=== PATIENT | female | born 1935 | race Caucasian/White ===

== ENCOUNTER 2019-10-10 08:23 | Outpatient (CLI) | payer MEDICARE, SELFPAY ==
--- NOTE | 2019-10-10 | ECG_ITS ---
Measurements Intervals [place] Rate: 76 P: 13 MO: 156 QRS: 2 QRSD: 107 T: 43 QT: 354 QTc: 400 Interpretive Statements SINUS RHYTHM BASELINE ARTIFACT- II, III, AVF NORMAL ECG Electronically Signed On 10-10-2019 10:14:05 CDT by Devaughn Sanabria D.O.
[2019-10-10 08:56] LABS: Blood Urea Nitrogen 21 mg/dL (7-17); Calcium 9.3 mg/dL (8.4-10.2); Carbon Dioxide 32 mmol/L (22-30); Chloride 105 mmol/L (98-107); Estimated Glomerular Filt Rate > 60; Glucose 107 mg/dL (65-105); Potassium 4.4 mmol/L (3.4-5.0); Sodium 139 mmol/L (137-145)
== END 2019-10-10 08:24 | disposition home or self-care (01) ==
PROVIDERS: PCP Family Medicine; Visit Provider Orthopaedic Surgery
DX: Z01.818 Encounter for other preprocedural examination (principal); I10 Essential (primary) hypertension
CPT/HCPCS: 36415; 80048; 93005

== ENCOUNTER 2020-05-04 08:27 | Outpatient (CLI) | payer MEDICARE, SELFPAY ==
[2020-05-04 09:11] LABS: Anion Gap 7 mmol/L (8-16); Blood Urea Nitrogen 19 mg/dL (7-17); Calcium 9.4 mg/dL (8.4-10.2); Carbon Dioxide 30 mmol/L (22-30); Chloride 104 mmol/L (98-107); Cholesterol 214 mg/dL (0-200); Estimated Glomerular Filt Rate 60; Glucose 121 mg/dL (65-105); HDL Direct 45 mg/dL; Potassium 4.3 mmol/L (3.4-5.0); Sodium 141 mmol/L (137-145); Triglycerides 156 mg/dL (<150)
[2020-05-04 09:22] LABS: LDL Cholesterol Direct 130 mg/dL
== END 2020-05-04 08:28 | disposition home or self-care (01) ==
PROVIDERS: PCP Internal Medicine; Visit Provider Internal Medicine
DX: I10 Essential (primary) hypertension (principal); E03.9 Hypothyroidism, unspecified; E78.5 Hyperlipidemia, unspecified
CPT/HCPCS: 36415; 80048; 80061; 84443

== ENCOUNTER 2020-10-15 07:13 | Outpatient (CLI) | payer MEDICARE, SELFPAY ==
[2020-10-15 07:51] LABS: Anion Gap 4 mmol/L (8-16); Blood Urea Nitrogen 22 mg/dL (7-17); Calcium 9.2 mg/dL (8.4-10.2); Carbon Dioxide 31 mmol/L (22-30); Chloride 107 mmol/L (98-107); Cholesterol 194 mg/dL (0-200); Estimated Glomerular Filt Rate 53; Glucose 110 mg/dL (65-105); HDL Direct 47 mg/dL; Potassium 4.4 mmol/L (3.4-5.0); Sodium 142 mmol/L (137-145); Triglycerides 142 mg/dL (<150)
[2020-10-15 08:01] LABS: LDL Cholesterol Direct 104 mg/dL
== END 2020-10-15 07:14 | disposition home or self-care (01) ==
PROVIDERS: PCP Internal Medicine; Visit Provider Internal Medicine
DX: E03.9 Hypothyroidism, unspecified (principal); E78.5 Hyperlipidemia, unspecified; I10 Essential (primary) hypertension
CPT/HCPCS: 36415; 80048; 80061; 84443

== ENCOUNTER → 2020-12-16 08:49 | Outpatient (CLI) | payer MEDICARE, SELFPAY ==
--- NOTE | ~2020-12-16 | XR_ITS ---
EXAMINATION: XR chest 2V DATE: 12/16/2020 09:12 INDICATION: Dyspnea TECHNIQUE: PA and lateral views of the chest were obtained. COMPARISON: Chest radiograph dated 09/03/2014 FINDINGS: The lungs remain clear with no focal airspace opacities, pulmonary edema, pleural effusion or pneumot horax. The cardiomediastinal silhouette is normal. Mild thoracic spondylosis. IMPRESSION: 1. No acute cardiopulmonary disease. Reviewed, dictated and finalized at location A.
== END ==
PROVIDERS: PCP Internal Medicine; Visit Provider Internal Medicine
DX: R06.00 Dyspnea, unspecified (principal)
CPT/HCPCS: 71046

== ENCOUNTER → 2021-02-25 01:11 | Outpatient (CLI) | payer MEDICARE, SELFPAY ==
[2021-02-26 00:13] LABS: SARS-CoV-2 RNA PCR Negative
== END ==
PROVIDERS: PCP Internal Medicine; Visit Provider Internal Medicine
DX: Z20.822 Contact with and (suspected) exposure to COVID-19 (principal); R09.89 Other specified symptoms and signs involving the circulatory and respiratory systems
CPT/HCPCS: C9803; U0003; U0005

== ENCOUNTER 2021-05-03 07:33 | Outpatient (CLI) | payer MEDICARE, SELFPAY ==
[2021-05-03 10:24] LABS: Alanine Aminotransferase 14 U/L (4-35); Albumin Level 4.5 g/dL (3.5-5.1); Alkaline Phosphatase 92 U/L (38-126); Anion Gap 9 mmol/L (8-16); Aspartate Amino Transferase 23 U/L (14-36); Bilirubin,Total 0.4 mg/dL (0.2-1.3); Blood Urea Nitrogen 25 mg/dL (7-17); Calcium 9.4 mg/dL (8.4-10.2); Carbon Dioxide 26 mmol/L (22-30); Chloride 106 mmol/L (98-107); Estimated Glomerular Filt Rate 47; Glucose 106 mg/dL (65-110); Potassium 4.4 mmol/L (3.4-5.0); Sodium 141 mmol/L (137-145)
== END 2021-05-03 07:34 | disposition home or self-care (01) ==
PROVIDERS: PCP Internal Medicine; Visit Provider Nurse Practitioner
DX: E03.9 Hypothyroidism, unspecified (principal); I10 Essential (primary) hypertension
CPT/HCPCS: 36415; 80053; 84443

== ENCOUNTER 2021-07-01 07:09 | Outpatient (CLI) | payer MEDICARE, SELFPAY ==
[2021-07-01 08:41] LABS: Hematocrit 38.9 % (37.0-47.0); Hemoglobin 12.6 g/dL (12.0-15.0); Mean Corpuscular HGB Conc 32.4 g/dl (32-36); Mean Corpuscular Hemoglobin 30.7 pg (26-34); Mean Corpuscular Volume 94.9 fl (80-100); Mean Platelet Volume 10.6 fl (7.4-10.4); Platelet Count Result 308 k/mm3 (150-375); Red Cell Distribution Width 12.4 % (11.5-14.5)
[2021-07-01 08:43] LABS: Anion Gap 8 mmol/L (8-16); Blood Urea Nitrogen 23 mg/dL (7-17); Calcium 9.2 mg/dL (8.4-10.2); Carbon Dioxide 26 mmol/L (22-30); Chloride 102 mmol/L (98-107); Estimated Glomerular Filt Rate 59; Glucose 105 mg/dL (65-110); Potassium 4.3 mmol/L (3.4-5.0); Sodium 136 mmol/L (137-145)
[2021-07-01 09:02] LABS: Free T4 Free Thyroxine 1.46 ng/mL (0.78-2.19)
== END 2021-07-01 07:10 | disposition home or self-care (01) ==
LOC: ANHLAB 07:11
PROVIDERS: PCP Family Medicine; Visit Provider Family Medicine
DX: E03.9 Hypothyroidism, unspecified (principal); I10 Essential (primary) hypertension
CPT/HCPCS: 36415; 80048; 84439; 84443; 85027

== ENCOUNTER 2021-07-27 06:50 | Outpatient (CLI) | payer MEDICARE, SELFPAY ==
[2021-07-27 07:43] LABS: Hematocrit 39.2 % (37.0-47.0); Hemoglobin 12.7 g/dL (12.0-15.0); Mean Corpuscular HGB Conc 32.4 g/dl (32-36); Mean Corpuscular Hemoglobin 31.2 pg (26-34); Mean Corpuscular Volume 96.3 fl (80-100); Mean Platelet Volume 10.3 fl (7.4-10.4); Platelet Count Result 257 k/mm3 (150-375); Red Blood Count 4.07 M/mm3 (4.2-5.4); Red Cell Distribution Width 12.4 % (11.5-14.5); White Blood Count 6.6 K/mm3 (4.5-10.0)
[2021-07-27 07:44] LABS: Anion Gap 8 mmol/L (8-16); Blood Urea Nitrogen 23 mg/dL (7-17); Calcium 9.5 mg/dL (8.4-10.2); Carbon Dioxide 26 mmol/L (22-30); Chloride 105 mmol/L (98-107); Estimated Glomerular Filt Rate 53; Glucose 113 mg/dL (65-110); Potassium 4.1 mmol/L (3.4-5.0); Sodium 139 mmol/L (137-145)
== END 2021-07-27 06:51 | disposition home or self-care (01) ==
PROVIDERS: PCP Family Medicine; Visit Provider Nurse Practitioner Family
DX: R79.9 Abnormal finding of blood chemistry, unspecified (principal); D64.9 Anemia, unspecified
CPT/HCPCS: 36415; 80048; 85027

== ENCOUNTER 2021-10-24 07:16 | Outpatient (CLI) | payer MEDICARE, SELFPAY ==
--- NOTE | ~2021-10-24 | XR_ITS ---
EXAMINATION: XR chest 2V DATE: 10/24/2021 07:34 INDICATION: Cough, unspecified. TECHNIQUE: Frontal and lateral views of the chest were obtained. COMPARISON: Chest 2 views 12/16/2020 FINDINGS: There is mild scarring at the lung apices. No pleural effusion or pneumothorax. The heart s ize is normal. IMPRESSION: 1. Stable mild scarring at the lung apices. Reviewed, dictated and finalized at location A.
== END 2021-10-24 07:17 | disposition home or self-care (01) ==
LOC: ANHIMG 07:21
PROVIDERS: PCP Family Medicine; Visit Provider Nurse Practitioner Family
DX: R05.9 Cough, unspecified (principal); R91.8 Other nonspecific abnormal finding of lung field
CPT/HCPCS: 71046

== ENCOUNTER 2022-01-03 07:16 | Outpatient (CLI) | payer MEDICARE, SELFPAY ==
[2022-01-03 08:31] LABS: Anion Gap 3 mmol/L (8-16); Blood Urea Nitrogen 22 mg/dL (7-17); Calcium 9.1 mg/dL (8.4-10.2); Carbon Dioxide 30 mmol/L (22-30); Chloride 106 mmol/L (98-107); Estimated Glomerular Filt Rate 47; Glucose 108 mg/dL (65-110); Potassium 4.3 mmol/L (3.4-5.0); Sodium 139 mmol/L (137-145)
== END 2022-01-03 07:17 | disposition home or self-care (01) ==
LOC: ANHLAB 07:18
PROVIDERS: PCP Family Medicine; Visit Provider Nurse Practitioner Family
DX: N28.9 Disorder of kidney and ureter, unspecified (principal)
CPT/HCPCS: 36415; 80048

== ENCOUNTER 2022-07-07 06:46 | Outpatient (CLI) | payer MEDICARE, SELFPAY ==
[2022-07-07 07:27] LABS: Hematocrit 39.1 % (37.0-47.0); Hemoglobin 12.7 g/dL (12.0-15.0); Mean Corpuscular HGB Conc 32.5 g/dl (32-36); Mean Corpuscular Hemoglobin 30.9 pg (26-34); Mean Corpuscular Volume 95.1 fl (80-100); Mean Platelet Volume 10.4 fl (7.4-10.4); Platelet Count Result 284 k/mm3 (150-375); Red Blood Count 4.11 M/mm3 (4.2-5.4)
[2022-07-07 07:44] LABS: Anion Gap 4 mmol/L (8-16); Blood Urea Nitrogen 33 mg/dL (7-17); Carbon Dioxide 30 mmol/L (22-30); Chloride 107 mmol/L (98-107); Estimated Glomerular Filt Rate 52; Glucose 99 mg/dL (65-110); Potassium 4.2 mmol/L (3.4-5.0); Sodium 141 mmol/L (137-145)
[2022-07-07 08:05] LABS: Free T4 Free Thyroxine 1.28 ng/mL (0.78-2.19); Vitamin D 25 Hydroxy 43.5 ng/mL
[2022-07-07 08:08] LABS: Thyroid Stimulating Hormone 0.386 uIU/mL (0.465-4.680)
== END 2022-07-07 06:47 | disposition home or self-care (01) ==
PROVIDERS: PCP Family Medicine; Visit Provider Family Medicine
DX: N18.30 Chronic kidney disease, stage 3 unspecified (principal); E03.9 Hypothyroidism, unspecified; D64.9 Anemia, unspecified; E55.9 Vitamin D deficiency, unspecified
CPT/HCPCS: 36415; 80048; 82306; 84439; 84443; 85027

== ENCOUNTER 2023-01-25 06:52 | Outpatient (CLI) | payer MEDICARE, SELFPAY ==
[2023-01-25 07:40] LABS: Hemoglobin 12.6 g/dL (12.0-15.0); Mean Corpuscular HGB Conc 31.5 g/dl (32-36); Mean Corpuscular Hemoglobin 30.3 pg (26-34); Mean Corpuscular Volume 96.2 fl (80-100); Mean Platelet Volume 10.6 fl (7.4-10.4); Platelet Count Result 254 k/mm3 (150-375); Red Blood Count 4.16 M/mm3 (4.2-5.4); White Blood Count 6.3 K/mm3 (4.5-10.0)
[2023-01-25 07:41] LABS: Alanine Aminotransferase 16 U/L (6-35); Alkaline Phosphatase 70 U/L (38-126); Anion Gap 7 mmol/L (8-16); Aspartate Amino Transferase 22 U/L (14-36); Bilirubin,Total 0.4 mg/dL (0.2-1.3); Blood Urea Nitrogen 25 mg/dL (7-17); Calcium 9.3 mg/dL (8.4-10.2); Carbon Dioxide 29 mmol/L (22-30); Chloride 104 mmol/L (98-107); Estimated Glomerular Filt Rate 47; Glucose 96 mg/dL (65-110); Sodium 140 mmol/L (137-145)
[2023-01-25 08:23] LABS: T4 Thyroxine 6.54 ug/dL (5.53-11.0)
== END 2023-01-25 06:53 | disposition home or self-care (01) ==
PROVIDERS: PCP Family Medicine; Visit Provider Nurse Practitioner Family
DX: E78.2 Mixed hyperlipidemia (principal); E03.9 Hypothyroidism, unspecified
CPT/HCPCS: 36415; 80053; 84436; 84443; 85027

== ENCOUNTER 2023-03-09 06:51 | Outpatient (CLI) | payer MEDICARE, SELFPAY ==
[2023-03-09 08:33] LABS: Anion Gap 5 mmol/L (8-16); Blood Urea Nitrogen 18 mg/dL (7-17); Calcium 9.4 mg/dL (8.4-10.2); Carbon Dioxide 28 mmol/L (22-30); Chloride 104 mmol/L (98-107); Estimated Glomerular Filt Rate 52; Glucose 94 mg/dL (65-110); Potassium 4.2 mmol/L (3.4-5.0); Sodium 137 mmol/L (137-145)
[2023-03-09 09:24] LABS: Free T4 Free Thyroxine 1.46 ng/mL (0.78-2.19)
== END 2023-03-09 06:52 | disposition home or self-care (01) ==
LOC: ANHLAB 06:52
PROVIDERS: PCP Family Medicine; Visit Provider Nurse Practitioner Family
DX: E03.9 Hypothyroidism, unspecified (principal); N18.30 Chronic kidney disease, stage 3 unspecified
CPT/HCPCS: 36415; 80048; 84439; 84443

== ENCOUNTER 2023-04-25 07:02 | Emergency (ER) | payer MEDICARE, SELFPAY ==
--- NOTE | ~2023-04-25 | CT_ITS ---
EXAMINATION: CT abdomen pelvis wo con DATE: 04/25/2023 08:11 INDICATION: Generalized abdominal pain TECHNIQUE: Computed tomography (CT) of the abdomen and pelvis was performed without intravenous contr ast. Automated exposure control and iterative reconstruction technique were employed. Exam dose: 410 .05 mGy-cm total exam DLP. COMPARISON: None. FINDINGS: Minimal discoid atelectasis, anterior basilar left lower lobe. Bases are otherwise clear. H eart size is normal. No pericardial or pleural effusion. Small sliding hiatal hernia. The liver, gallbladder, bile ducts, pancreas, pancreatic duct and spleen as well as adrenal glands an d kidneys appear unremarkable on this limited noncontrast examination. There is extensive calcification but normal caliber of the abdominal aorta, with calcification at the origins of the celiac, superior mesenteric, renal and inferior mesenteric arteries. No intraperitone al or retroperitoneal or pelvic mass lesion or adenopathy or ascites. There is a large stool ball in the rectum, measuring up to 7.7 cm transverse dimension. Diverticulosis of the colon; no CT evidence of diverticulitis. There is a short segment of possible thickening of the wall the distal transverse colon; colon workup (colonoscopy or barium enema) is recommended to exclude any constricting apple core lesion of the co kami if there is been no recent colon workup. No bowel obstruction or bowel wall thickening is noted o therwise. No intraperitoneal free air. Small fat-containing umbilical hernia. The urinary bladder is unremarkable. Status post hysterectomy. 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 No suspicious osteolytic or osteoblastic lesions are noted. Bilateral hip osteoarthritis. IMPRESSION: Cannot exclude a constricting soft tissue mass of distal transverse colon; colonoscopy o r barium enema should be considered if not performed recently Large stool ball in the rectum Diverticulosis of the colon; no evidence of diverticulitis Small sliding hiatal hernia Reviewed, dictated and finalized at Location A. Reviewed, dictated and finalized at location B. IMPRESSION: Cannot exclude a constricting soft tissue mass of distal transvers e colon; colonoscopy or barium enema should be considered if not performed rece ntly Large stool ball in the rectum Diverticulosis of the colon; no evidence of diverticulitis Small sliding hiatal hernia
[2023-04-25 07:08] VITALS: BP 153/68; PULSE 103; RESP 17; TEMP 36.8; O2SAT 99
[2023-04-25] MEDS: SODIUM CHLORIDE 0.9% IV 1,000 ML 999 ML IV CONT (08:18)
[2023-04-25 08:22] LABS: Basophils Percent Auto 0.5 % (0.2-1.2); Eosinophils Absolute Auto 0.1 K/mm3 (0-0.3); Eosinophils Percent Auto 2.3 % (0-4.4); Hematocrit 41.3 % (37.0-47.0); Hemoglobin 13.3 g/dL (12.0-15.0); Immature Granulocyte Absolute 0.02 K/mm3 (0.00-0.031); Immature Granulocyte Percent A 0.3 % (0-0.5); Lymphocytes Absolute Auto 1.67 K/mm3 (0.9-3.2); Lymphocytes Percent Auto 27.9 % (18.3-44.2); Mean Corpuscular HGB Conc 32.2 g/dl (32-36); Mean Corpuscular Hemoglobin 31.1 pg (26-34); Mean Corpuscular Volume 96.7 fl (80-100); Monocytes Absolute Auto 0.5 K/mm3 (0.1-0.6); Monocytes Percent Auto 7.5 % (2.6-8.5); Neutrophils Absolute Auto 3.7 K/mm3 (1.3-6.7); Neutrophils Percent Auto 61.5 % (45.5-73.1); Platelet Count Result 260 k/mm3 (150-375); Red Blood Count 4.27 M/mm3 (4.2-5.4); Red Cell Distribution Width 12.5 % (11.5-14.5)
--- NOTE | 2023-04-25 08:27 | ED.ABDPAIN ---
HPI - Abdominal Pain General Chief Complaint: Abdominal Pain Stated Complaint: constipation x 2 weeks Time Seen by Provider: 04/25/23 07:18 History of Present Illness HPI narrative: This is an 87-year-old female, who presents to the emergency department complaining of constipation and abdominal pain. She describes the pain as sharp, rated 7/10 and primarily in the lower abdomen. She states she has not had a bowel movement in the past week but is able to pass gas. She denies recent trauma, nausea, vomiting or fevers. Related Data Home Medications Medication Instructions Recorded Confirmed albuterol sulfate 90 mcg/actuation 1 puff inhalation Q4H PRN 04/27/20 03/22/23 aerosol inhaler (ProAir HFA) Allergies Allergy/AdvReac Type Severity Reaction Status Date / Time Iodinated Contrast Media Allergy Intermediate Nausea Verified 04/25/23 07:16 Review of Systems Review of Systems: CONSTITUTIONAL: Denies fever, chills, or sweats. CARDIOVASCULAR: Denies chest pain, palpitations, or edema. RESPIRATORY: Denies cough or dyspnea. GASTROINTESTINAL: abdominal pain, constipation, Denies nausea, vomiting, or diarrhea. GENITOURINARY: Denies dysuria or hematuria. SKIN: Denies rash or itching. MUSCULOSKELETAL: Denies back pain, joint pain, or myalgia. NEUROLOGIC: Denies headache, numbness, dizziness, or weakness. PSYCHIATRIC: Denies anxiety or depression. [facility] Past Medical History Medical History Arthritis Asthma BMI 26.0-26.9,adult BMI 27.0-27.9,adult CKD (chronic kidney disease) stage 3, GFR 30-59 ml/min Fever with chills HTN (hypertension) Hypothyroid Recurrent sinusitis Shoulder pain Surgical History Surgical History H/O: hysterectomy History of arthroplasty of left knee Family History Family History Father Family history of alcoholism Alcoholic cirrhosis Mother Other Hypertension Social History Social History Smoking status: Never smoker Second hand tobacco smoke exposure: No Alcohol intake: never Substance use: never Substance use type: does not use Lack of Transportation: No Lack of Food: Never True Current Housing: I Have Housing Concerned About Future Housing: No Difficulty Paying Gas/Electric Bills: No Difficulty Paying for Meds: No Currently Unemployed: No Education: High School Diploma/GED Difficulty w/ Childcare or Family Care: No Living arrangements: with family Occupation/Education: retired 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 Exam Narrative: GENERAL: Well-developed, well-nourished, and in no acute distress. HEAD: Normocephalic, atraumatic. EYES: PERRLA and EOMI. CHEST: Clear to auscultation. No respiratory distress. No wheezes rales or rhonchi HEART: Regular rate and rhythm. No murmur heard. Normal peripheral pulses. ABDOMEN: Soft, minimally tender to palpation without rebound or guarding, nondistended, normal active bowel sounds. No CVA tenderness to palpation EXTREMITIES: Normal range of motion. No edema. SKIN: Warm, dry, no rash. NEURO: Alert and oriented x3. Moving all 4 limbs purposefully. PSYCH: Normal mood and affect. Course Course Emergency Course: 09:57 - CBC unremarkable. Chemistries demonstrate slightly elevated creatinine of 1.1 with a baseline of 1. CT abdomen pelvis demonstrates a stool ball but could not rule out a constricting mass in the distal transverse colon. The patient states she has had previous colonoscopies without unusual findings. Her primary care provider has revealed that she has aged out of future colonoscopies. The patient was able to have a significant bowel movement with relief of her symptoms in the emergency depart
[2023-04-25 08:35] LABS: Lactic Acid Reflex 0.8 mmol/L (0.7-2.0)
[2023-04-25 08:36] LABS: Alanine Aminotransferase 17 U/L (6-35); Albumin Level 4.2 g/dL (3.5-5.1); Alkaline Phosphatase 87 U/L (38-126); Anion Gap 6 mmol/L (8-16); Aspartate Amino Transferase 27 U/L (14-36); Bilirubin,Total 0.6 mg/dL (0.2-1.3); Blood Urea Nitrogen 24 mg/dL (7-17); Calcium 9.3 mg/dL (8.4-10.2); Carbon Dioxide 27 mmol/L (22-30); Chloride 105 mmol/L (98-107); Estimated CRCL calculation 28 ml/min; Estimated Glomerular Filt Rate 47; Glucose 107 mg/dL (65-110); Potassium 4.6 mmol/L (3.4-5.0); Sodium 138 mmol/L (137-145)
[2023-04-25 10:25] VITALS: BP 138/84; PULSE 84; RESP 16; O2SAT 99
== END 2023-04-25 10:26 | disposition home or self-care (01) ==
PROVIDERS: Emergency Provider Preventive Medicine Aerospace Medicine; PCP Family Medicine
DX: K59.00 Constipation, unspecified (principal); R10.84 Generalized abdominal pain; I12.9 Hypertensive chronic kidney disease with stage 1 through stage 4 chronic kidney disease, or unspecified chronic kidney disease; N18.30 Chronic kidney disease, stage 3 unspecified; J45.909 Unspecified asthma, uncomplicated; M19.90 Unspecified osteoarthritis, unspecified site; Z90.710 Acquired absence of both cervix and uterus; Z96.652 Presence of left artificial knee joint; K57.90 Diverticulosis of intestine, part unspecified, without perforation or abscess without bleeding; K44.9 Diaphragmatic hernia without obstruction or gangrene; R93.3 Abnormal findings on diagnostic imaging of other parts of digestive tract
CPT/HCPCS: 36415; 74176; 80053; 83605; 85025; 96360; 99284; J7030

== ENCOUNTER 2023-05-03 14:15 | Outpatient (CLI) | payer MEDICARE, SELFPAY ==
--- NOTE | ~2023-05-03 | CT_ITS ---
EXAMINATION: CT abdomen pelvis wo con DATE: 05/03/2023 14:32 INDICATION: Intra-abdominal and pelvic pain TECHNIQUE: Computed tomography (CT) of the abdomen and pelvis was performed without intravenous contr ast. The dose-length product was 384.77 mGy-cm. Automated exposure control and iterative reconstructi on technique were employed. COMPARISON: No prior studies for comparison. . FINDINGS: Heart size is normal. No significant pleural or pericardial effusion. The liver, spleen, pa ncreas, adrenal glands and kidneys are unremarkable. There is hazy opacification of the mesenteric fa t with small associated mesenteric lymph nodes, suspicious for sclerosing mesenteritis. Nonobstructiv e bowel gas pattern. Severe lumbar spondylosis. No free air or free fluid. Gallbladder is present. No lymphadenopathy. No significant vascular abnormality. IMPRESSION: 1. No acute abdominal abnormality. Reviewed, dictated and finalized at location A.
== END 2023-05-03 14:16 | disposition home or self-care (01) ==
PROVIDERS: PCP Family Medicine; Visit Provider Nurse Practitioner Family
DX: R93.89 Abnormal findings on diagnostic imaging of other specified body structures (principal); R19.00 Intra-abdominal and pelvic swelling, mass and lump, unspecified site
CPT/HCPCS: 74176

== ENCOUNTER 2023-05-09 06:52 | Outpatient (CLI) | payer MEDICARE, SELFPAY ==
[2023-05-09 07:48] LABS: Hematocrit 41.1 % (37.0-47.0); Mean Corpuscular HGB Conc 31.6 g/dl (32-36); Mean Corpuscular Hemoglobin 30.7 pg (26-34); Mean Corpuscular Volume 96.9 fl (80-100); Mean Platelet Volume 10.2 fl (7.4-10.4); Platelet Count Result 291 k/mm3 (150-375); Red Blood Count 4.24 M/mm3 (4.2-5.4); Red Cell Distribution Width 12.6 % (11.5-14.5); White Blood Count 5.8 K/mm3 (4.5-10.0)
[2023-05-09 08:05] LABS: Iron 82 ug/dL (37-170)
[2023-05-09 08:15] LABS: Percent Iron Saturation 33 % (20-50)
[2023-05-09 08:23] LABS: Free T4 Free Thyroxine 0.91 ng/mL (0.78-2.19)
== END 2023-05-09 06:53 | disposition home or self-care (01) ==
LOC: ANHLAB 06:53
PROVIDERS: PCP Family Medicine; Visit Provider Family Medicine
DX: D64.9 Anemia, unspecified (principal); E03.9 Hypothyroidism, unspecified
CPT/HCPCS: 36415; 83540; 83550; 84439; 84443; 85027

== ENCOUNTER 2023-08-28 06:36 | Outpatient (CLI) | payer MEDICARE, SELFPAY ==
[2023-08-28 07:12] LABS: Hematocrit 41.4 % (37.0-47.0); Hemoglobin 13.3 g/dL (12.0-15.0); Mean Corpuscular HGB Conc 32.1 g/dl (32-36); Mean Corpuscular Volume 96.5 fl (80-100); Platelet Count Result 271 k/mm3 (150-375); Red Blood Count 4.29 M/mm3 (4.2-5.4); Red Cell Distribution Width 13.1 % (11.5-14.5); White Blood Count 6.4 K/mm3 (4.5-10.0)
[2023-08-28 07:21] LABS: Anion Gap 6 mmol/L (8-16); Blood Urea Nitrogen 27 mg/dL (7-17); Calcium 9.2 mg/dL (8.4-10.2); Carbon Dioxide 26 mmol/L (22-30); Chloride 107 mmol/L (98-107); Estimated Glomerular Filt Rate 52; Glucose 102 mg/dL (65-110); Potassium 4.4 mmol/L (3.4-5.0); Sodium 139 mmol/L (137-145)
[2023-08-28 07:58] LABS: Free T4 Free Thyroxine 0.77 ng/mL (0.78-2.19)
== END 2023-08-28 06:37 | disposition home or self-care (01) ==
LOC: ANHLAB 06:38
PROVIDERS: PCP Family Medicine; Visit Provider Family Medicine
DX: E03.9 Hypothyroidism, unspecified (principal); D64.9 Anemia, unspecified; I10 Essential (primary) hypertension
CPT/HCPCS: 36415; 80048; 84439; 84443; 85027

== ENCOUNTER 2023-09-19 06:45 | Outpatient (CLI) | payer MEDICARE, SELFPAY ==
[2023-09-19 08:32] LABS: Free T4 Free Thyroxine 0.83 ng/mL (0.78-2.19)
== END 2023-09-19 06:46 | disposition home or self-care (01) ==
PROVIDERS: PCP Family Medicine; Visit Provider Family Medicine
DX: E03.9 Hypothyroidism, unspecified (principal)
CPT/HCPCS: 36415; 84439; 84443

== ENCOUNTER 2024-06-26 10:41 | Outpatient (CLI) | payer MEDICARE, SELFPAY | END 2024-06-26 10:42 | disposition home or self-care (01) | PROVIDERS: PCP Family Medicine; Visit Provider Family Medicine | DX: E03.9 Hypothyroidism, unspecified (principal) | CPT/HCPCS: 36415; 84439; 84443 ==

== ENCOUNTER 2024-11-21 09:41 | Outpatient (CLI) | payer MEDICARE, SELFPAY ==
[2024-11-21 11:16] LABS: Hematocrit 44.2 % (37.0-47.0); Hemoglobin 14.2 g/dL (12.0-15.0); Mean Corpuscular HGB Conc 32.1 g/dl (32-36); Mean Corpuscular Volume 93.2 fl (80-100); Mean Platelet Volume 10.9 fl (7.4-10.4); Platelet Count Result 279 k/mm3 (150-375); Red Blood Count 4.74 M/mm3 (4.2-5.4); Red Cell Distribution Width 13.5 % (11.5-14.5); White Blood Count 6.4 K/mm3 (4.5-10.0)
[2024-11-21 11:36] LABS: Anion Gap 10 mmol/L (4-12); Blood Urea Nitrogen 12 mg/dL (7-17); Calcium 9.3 mg/dL (8.4-10.2); Carbon Dioxide 26 mmol/L (22-30); Chloride 102 mmol/L (98-107); Estimated Glomerular Filt Rate > 60; Glucose 102 mg/dL (65-110); Potassium 4.2 mmol/L (3.4-5.0); Sodium 138 mmol/L (137-145)
[2024-11-21 12:12] LABS: Iron 101 ug/dL (37-170)
[2024-11-21 12:24] LABS: Percent Iron Saturation 44 % (20-50)
[2024-11-21 12:36] LABS: Free T4 Free Thyroxine 0.87 ng/dL (0.78-2.19)
--- OUTSIDE RECORDS SUMMARY | 2024-11-22 11:38 | XMS_ITS | Data Portability ---
Author Organization [facility] MYAAntonino Victor Address [address] [place] [address] Care Team Providers Care Summer Nanny Name Role Phone KATHRYN MCCLELLAND Primary Care Provider Unavailabl e Assessment Encounter Date Assessment Date Assessment LastModified by Organization Details LastModified Time 06/06/2019 06/06/2019 got flu shot at [facility] already [email or web address] Not available 06/06/2019 10:27:16 12/08/2019 12/08/2019 wants to get her knee fixed by Dr. Buckner as soon as possible. Has been staying at home, wearing masks, no signs of respiratory infection.. [email or web address] Not available 12/08/2019 10:26:14 Plan of Treatment Reminders Order Date Submit Date Provider Last Modified By Organization Details Last Modified Time Details Appointments None recorded. Lab CMP, serum or plasma 2019 020 [facility], [address] [place] [address], [place] [address], [place], [address], 0 14:10:25 CBC w/ auto diff 2019 020 [facility], [address] [place] [address], [address], [place], [address], 0 14:10:24 lipid panel, serum 2019 020 [facility], [address] [place] [address], [address], [place], [address], 0 14:10:26 TSH, ultra-sen sitive, serum 2019 020 [facility], [address], [address], [place], [address], 0 14:10:26 lipid panel, serum 2018 [facility], [address], [address], [place], [address], 9 06:51:48 CBC w/ auto diff 2018 [facility], [address], [address], [place], [address], 9 06:51:47 CMP, serum or plasma 2018 [facility], [address] [facility] [address], [place], [address], 9 06:51:47 vitamin D, 25-hydrox y, total, serum 2018 [facility], [address], [address], [place], [address], 9 06:51:49 TSH, ultra-sen sitive, serum 2018 019 [facility], [address] [facility] [address], [place], [address], 9 06:51:49 Referral orthopedi c referral - Patient has appt 07/28/20192019 [email or web address] Not available 0 14:40:23 Procedures None recorded. Surgeries None recorded. Imaging None recorded. Medication Orders acetamino phen 300 mg-codein e 30 mg tablet 2019 [facility], [address] [facility], [place], [address], 0 10:35:14 Vitamin D2 1,250 mcg (50,000 unit) capsule 2019 020 [facility], [address] [place], [address], 0 10:33:14 cefdinir 300 mg capsule 2018 019 [email or web address] [facility], [address] [place], [address], 9 10:05:04 fluticaso ne propionat e 50 mcg/actua tion nasal spray,iris pension 2018 019 [facility], [address] [place], [address], 9 12:47:50 Patient TargetsNo targets recorded. Patient Instructions Encounter Date Encounter Id Patient Instructions Last Modified By Organization Details Last Modified Time 08/22/2019 [id number] meniscus tear: care instructions [email or web address] Not available 08/22/2019 11:51:23 09/09/2019 [id number] meniscus tear: care instructions [email or web address] Not available 09/09/2019 10:33:03 12/08/2019 [id number] meniscus tear: care instructions [email or web address] Not available 12/08/2019 10:26:15 Reason for Referral Orthopedic Referral for Curr ent tear of medial cartilage AND/OR meniscus of knee I suspect medial meniscus tear. Right medial knee pain. Patient has appt 07/28/2019 Referring Physician: Kathryn Mcclelland, Family Medicine, Encounter Date: 08/22/2019 Results Created Date Observation Date Name Description Value Unit Range Abnormal Flag Note LastModifiedBy Organization Detail LastModifiedTime 06/06/2006/07/2019 CBC w/ auto diff WBC 6.1 x10e3 /uL 3.4-10 .8 Not Available [facility] ([facility]) [address] [facility], [place], [address], 06/08/2019 06:51:47 06/06/2006/07/2019 CBC w/ auto diff RBC 4.24 x10e6 /uL 3.77-5 .28 Not Available [facility] ([facility]) [address] [place], [address], 06/08/2019 06:51:47 06/06/2006/07/2019 CBC w/ auto diff hemoglobin 13.3 g/dL 11.1-1 5.9 Not Available [facility] ([facility]) [address] [place], [address], 06/08/2019 06:51:47 06/06/2006/07/2019 CBC w/ auto diff hematocrit 39.5 % 34.0-4 6.6 Not Available [facility] ([facility]) [address] [place], [address], 06/08/2019 06:51:47 06/06/2006/07/2019 CBC w/ auto diff MCV 93 fL 79-97 Not Available [facility] ([facility]) [address] [place], [address], 06/08/2019 06:51:47 06/06/2006/07/2019 CBC w/ auto diff MCH 31.4 pg 26.6-3 3.0 Not Available [facility] ([facility]) [address] [place], [address], 06/08/2019 06:51:47 06/06/2006/07/2019 CBC w/ auto diff MCHC 33.7 g/dL 31.5-3 5.7 Not Available [facility] ([facility]) [address] [place], [address], 06/08/2019 06:51:47 06/06/2006/07/2019 CBC w/ auto diff RDW 13.1 % 12.3-1 5.4 Not Available [facility] ([facility]) [address] [place], [address], 06/08/2019 06:51:47 06/06/20 19 06/07/2019 CBC w/ auto diff platelets 289 x10e3 /uL 150-45 0 Not Available [facility] ([facility]) [address] [place], [address], 06/08/2019 06:51:47 06/06/20 19 06/07/2019 CBC w/ auto diff neutrophils 54 % not estab. Not Available [facility] ([facility]) [address] [facility], [place], [address], 06/08/2019 06:51:47 06/06/2006/07/2019 CBC w/ auto diff lymphs 35 % not estab. Not Available [facility] ([facility]) [address] [place], [address], 06/08/2019 06:51:47 06/06/2006/07/2019 CBC w/ auto diff monocytes 8 % not estab. Not Available [facility] ([facility]) [address] [place], [address], 06/08/2019 06:51:47 06/06/2006/07/2019 CBC w/ auto diff eos 3 % not estab. Not Available [facility] ([facility]) [address] [place], [address], 06/08/2019 06:51:47 06/06/2006/07/2019 CBC w/ auto diff basos 0 % not estab. Not Available [facility] ([facility]) [address] [place], [address], 06/08/2019 06:51:47 06/06/2006/07/2019 CBC w/ auto diff immature cells NURSE EXAMINER Not Available [facility] ([facility]) [address] [place], [address], 06/08/2019 06:51:47 06/06/2006/07/2019 CBC w/ auto diff neutrophils (absolute) 3.2 x10e3 /uL 1.4-7. 0 Not Available [facility] ([facility]) [address] [place], [address], 06/08/2019 06:51:47 06/06/20 19 06/07/2019 CBC w/ auto diff lymphs (absolute) 2.1 x10e3 /uL 0.7-3. 1 Not Available [facility] ([facility]) [address] [place], [address], 06/08/2019 06:51:47 06/06/2006/07/2019 CBC w/ auto diff monocytes(ab solute) 0.5 x10e3 /uL 0.1-0. 9 Not Available [facility] ([facility]) [address] [place], [address], 06/08/2019 06:51:47 06/06/2006/07/2019 CBC w/ auto diff eos (absolute) 0.2 x10e3 /uL 0.0-0. 4 Not Available [facility] ([facility]) [address] [place], [address], 06/08/2019 06:51:47 06/06/2006/07/2019 CBC w/ auto diff baso (absolute) 0.0 x10e3 /uL 0.0-0. 2 Not Available [facility] ([facility]) [address] [place], [address], 06/08/2019 06:51:47 06/06/20 19 06/07/2019 CBC w/ auto diff immature granulocytes 0 % not estab. Not Available [facility] ([facility]) [address] [place], [address], 06/08/2019 06:51:47 06/06/20 19 06/07/2019 CBC w/ auto diff immature grans (abs) 0.0 x10e3 /uL 0.0-0. 1 Not Available [facility] ([facility]) [address] [place], [address], 06/08/2019 06:51:47 06/06/2006/07/2019 CBC w/ auto diff NRBC NURSE EXAMINER Not Available [facility] ([facility]) [address] [place], [address], 06/08/2019 06:51:47 06/06/2006/07/2019 CBC w/ auto diff hematology comments: NURSE EXAMINER Not Available [facility] ([facility]) [address] [place], [address], 06/08/2019 06:51:47 06/06/2006/07/2019 CMP, serum or plasm a glucose 106 mg/dL 65-99 above high normal Not Available [facility] ([facility]) [address] [place], [address], 06/08/2019 06:51:47 06/06/2006/07/2019 CMP, serum or plasm a BUN 24 mg/dL 8-27 Not Available [facility] ([facility]) [address] [place], [address], 06/08/2019 06:51:47 06/06/2006/07/2019 CMP, serum or plasm a creatinine 0.93 mg/dL 0.57-1 .00 Not Available [facility] ([facility]) [address] [place], [address], 06/08/2019 06:51:47 06/06/2006/07/2019 CMP, serum or plasm a eGFR if nonafricn AM 57 mL/mi n/1.7 3 >59 below low normal Not Available [facility] ([facility]) [address] [place], [address], 06/08/2019 06:51:47 06/06/20 19 06/07/2019 CMP, serum or plasm a eGFR if africn AM 65 mL/mi n/1.7 3 >59 Not Available [facility] ([facility]) [address] [place], [address], 06/08/2019 06:51:47 06/06/2006/07/2019 CMP, serum or plasm a BUN/creatini ne ratio 26 12-28 Not Available [facility] ([facility]) [address] [place], [address], 06/08/2019 06:51:47 06/06/2006/07/2019 CMP, serum or plasm a sodium 142 mmol/ L 134-14 4 Not Available [facility] ([facility]) [address] [place], [address], 06/08/2019 06:51:47 06/06/2006/07/2019 CMP, serum or plasm a potassium 4.7 mmol/ L 3.5-5. 2 Not Available [facility] ([facility]) [address] [place], [address], 06/08/2019 06:51:47 06/06/2006/07/2019 CMP, serum or plasm a chloride 103 mmol/ L 96-106 Not Available [facility] ([facility]) [address] [place], [address], 06/08/2019 06:51:47 06/06/2006/07/2019 CMP, serum or plasm a carbon dioxide, total 22 mmol/ L 20-29 Not Available [facility] ([facility]) [address] [place], [address], 06/08/2019 06:51:47 06/06/2006/07/2019 CMP, serum or plasm a calcium 9.8 mg/dL 8.7-10 .3 Not Available [facility] ([facility]) [address] [place], [address], 06/08/2019 06:51:47 06/06/2006/07/2019 CMP, serum or plasm a protein, total 6.9 g/dL 6.0-8. 5 Not Available [facility] ([facility]) [address] [place], [address], 06/08/2019 06:51:47 06/06/2006/07/2019 CMP, serum or plasm a albumin 4.4 g/dL 3.5-4. 7 Not Available [facility] ([facility]) [address] [place], [address], 06/08/2019 06:51:47 06/06/2006/07/2019 CMP, serum or plasm a globulin, total 2.5 g/dL 1.5-4. 5 Not Available [facility] ([facility]) [address] [place], [address], 06/08/2019 06:51:47 06/06/2006/07/2019 CMP, serum or plasm a A/G ratio 1.8 1.2-2. 2 Not Available [facility] ([facility]) [address] [place], [address], 06/08/2019 06:51:47 06/06/2006/07/2019 CMP, serum or plasm a bilirubin, total 0.4 mg/dL 0.0-1. 2 Not Available [facility] ([facility]) [address] [place], [address], 06/08/2019 06:51:47 06/06/2006/07/2019 CMP, serum or plasm a alkaline phosphatase 99 IU/L 39-117 Not Available [facility] ([facility]) [address] [place], [address], 06/08/2019 06:51:47 06/06/2006/07/2019 CMP, serum or plasm a AST (SGOT) 15 IU/L 0-40 Not Available [facility] ([facility]) [address] [place], [address], 06/08/2019 06:51:47 06/06/2006/07/2019 CMP, serum or plasm a ALT (SGPT) 8 IU/L 0-32 Not Available [facility] ([facility]) [address] [place], [address], 06/08/2019 06:51:47 06/06/2006/07/2019 lipid panel , serum cholesterol, total 233 mg/dL 100-19 9 above high normal Not Available [facility] ([facility]) [address] [facility] [place], [address], 06/08/2019 06:51:48 06/06/2006/07/2019 lipid panel , serum triglyceride s 130 mg/dL 0-149 Not Available [facility] ([facility]) [address] [facility] [place] [place], [address], 06/08/2019 06:51:48 06/06/2006/07/2019 lipid panel , serum HDL cholesterol 56 mg/dL >39 Not Available [facility] ([facility]) [address] [facility] [place], [address], 06/08/2019 06:51:48 06/06/2006/07/2019 lipid panel , serum VLDL cholesterol mati 26 mg/dL 5-40 Not Available [facility] ([facility]) [address] [facility] [place] [place], [address], 06/08/2019 06:51:48 06/06/2006/07/2019 lipid panel , serum LDL cholesterol calc 151 mg/dL 0-99 above high normal Not Available [facility] ([facility]) [address] [facility] [place] [place], [address], 06/08/2019 06:51:48 06/06/2006/07/2019 lipid panel , serum comment: NURSE EXAMINER Not Available [facility] ([facility]) [address] [facility] [place] [place], [address], 06/08/2019 06:51:48 06/06/20 19 06/07/2019 vitam in D, 25-hy droxy , total , serum vitamin D, 25-hydroxy 25.2 NG/mL 30.0-1 00.0 below low normal Vitam in D defic iency has been defin ed by the Insti tute of Medic ine and an Endoc rine Socie ty pract ice guide line as a level of serum 25-OH vitam in D less than 20 ng/mL (1,2) . The Endoc rine Socie ty went on to furth er defin e vitam in D insuf ficie ncy as a level betwe en 21 and 29 ng/mL (2). 1. IOM (Inst itute of Medic ine). 2009. Jayya ry refer ence intak es for calci um and D. Elmer leigh [place]: The [employer] . 2. Maryellen farnsworth [place], Osmani monk [place], Shanda off-F adriar i [place], et al. Evalu ation , treat ment, and preve ntion of vitam in D defic iency : an Endoc rine Socie ty clini mati pract ice guide line. JCEM. 2010; 96(7) :1911 -30. Not Available [facility] ([facility]) [address] [place], [address], 06/08/2019 06:51:48 06/06/2006/07/2019 TSH, ultra -sens itive , serum TSH 0.188 uIU/m L 0.450- 4.500 below low normal Not Available [facility] ([facility]) [address] [place], [address], 06/08/2019 06:51:49 06/06/2006/08/2019 TSH, ultra -sens itive , serum T4,free (direct) 1.48 NG/dL 0.82-1 .77 Not Available [facility] ([facility]) [address] [place], [address], 06/08/2019 06:51:49 09/09/19 20 09/10/2019 CBC w/ auto diff WBC 7.3 x10e3 /uL 3.4-10 .8 Not Available [facility] ([facility]) [address] [place], [address], 09/10/2019 14:10:24 09/09/19 20 09/10/2019 CBC w/ auto diff RBC 4.45 x10e6 /uL 3.77-5 .28 Not Available [facility] ([facility]) [address] [place], [address], 09/10/2019 14:10:24 09/09/19 20 09/10/2019 CBC w/ auto diff hemoglobin 13.7 g/dL 11.1-1 5.9 Not Available [facility] ([facility]) [address] [place], [address], 09/10/2019 14:10:24 09/09/19 20 09/10/2019 CBC w/ auto diff hematocrit 41.4 % 34.0-4 6.6 Not Available [facility] ([facility]) [address] [place], [address], 09/10/2019 14:10:24 09/09/19 20 09/10/2019 CBC w/ auto diff MCV 93 fL 79-97 Not Available [facility] ([facility]) [address] [place], [address], 09/10/2019 14:10:24 09/09/19 20 09/10/2019 CBC w/ auto diff MCH 30.8 pg 26.6-3 3.0 Not Available [facility] ([facility]) [address] [place], [address], 09/10/2019 14:10:24 09/09/19 20 09/10/2019 CBC w/ auto diff MCHC 33.1 g/dL 31.5-3 5.7 Not Available [facility] ([facility]) [address] [place], [address], 09/10/2019 14:10:24 09/09/19 20 09/10/2019 CBC w/ auto diff RDW 12.4 % 11.7-1 5.4 Not Available [facility] ([facility]) [address] [facility], [place], [address], 09/10/2019 14:10:24 09/09/19 20 09/10/2019 CBC w/ auto diff platelets 324 x10e3 /uL 150-45 0 Not Available [facility] ([facility]) [address] [facility], [place], [address], 09/10/2019 14:10:24 09/09/19 20 09/10/2019 CBC w/ auto diff neutrophils 59 % not estab. Not Available [facility] ([facility]) [address] [facility], [place], [address], 09/10/2019 14:10:24 09/09/19 20 09/10/2019 CBC w/ auto diff lymphs 29 % not estab. Not Available [facility] ([facility]) [address] [facility], [place], [address], 09/10/2019 14:10:24 09/09/19 20 09/10/2019 CBC w/ auto diff monocytes 8 % not estab. Not Available [facility] ([facility]) [address] [facility], [place], [address], 09/10/2019 14:10:24 09/09/19 20 09/10/2019 CBC w/ auto diff eos 3 % not estab. Not Available [facility] ([facility]) [address] [facility], [place], [address], 09/10/2019 14:10:24 09/09/19 20 09/10/2019 CBC w/ auto diff basos 1 % not estab. Not Available [facility] ([facility]) [address] [facility], [place], [address], 09/10/2019 14:10:24 09/09/19 20 09/10/2019 CBC w/ auto diff immature cells NURSE EXAMINER Not Available [facility] ([facility]) [address] [place], [address], 09/10/2019 14:10:24 09/09/19 20 09/10/2019 CBC w/ auto diff neutrophils (absolute) 4.3 x10e3 /uL 1.4-7. 0 Not Available [facility] ([facility]) [address] [place], [address], 09/10/2019 14:10:24 09/09/19 20 09/10/2019 CBC w/ auto diff lymphs (absolute) 2.1 x10e3 /uL 0.7-3. 1 Not Available [facility] ([facility]) [address] [place], [address], 09/10/2019 14:10:24 09/09/19 20 09/10/2019 CBC w/ auto diff monocytes(ab solute) 0.6 x10e3 /uL 0.1-0. 9 Not Available [facility] ([facility]) [address] [place], [address], 09/10/2019 14:10:24 09/09/19 20 09/10/2019 CBC w/ auto diff eos (absolute) 0.2 x10e3 /uL 0.0-0. 4 Not Available [facility] ([facility]) [address] [place], [address], 09/10/2019 14:10:24 09/09/19 20 09/10/2019 CBC w/ auto diff baso (absolute) 0.0 x10e3 /uL 0.0-0. 2 Not Available [facility] ([facility]) [address] [place], [address], 09/10/2019 14:10:24 09/09/19 20 09/10/2019 CBC w/ auto diff immature granulocytes 0 % not estab. Not Available [facility] ([facility]) [address] [facility], [place], [address], 09/10/2019 14:10:24 09/09/19 20 09/10/2019 CBC w/ auto diff immature grans (abs) 0.0 x10e3 /uL 0.0-0. 1 Not Available [facility] ([facility]) [address] [facility], [place], [address], 09/10/2019 14:10:24 09/09/19 20 09/10/2019 CBC w/ auto diff NRBC NURSE EXAMINER Not Available [facility] ([facility]) [address] [facility], [place], [address], 09/10/2019 14:10:24 09/09/19 20 09/10/2019 CBC w/ auto diff hematology comments: NURSE EXAMINER Not Available [facility] ([facility]) [address] [facility], [place], [address], 09/10/2019 14:10:24 09/09/19 20 09/10/2019 CMP, serum or plasm a glucose TNP mg/dL Test not perfo rmed. Speci men recei deni uncen trifu ged or impro perly centr ifuge d. Not Available [facility] ([facility]) [address] [place], [address], 09/10/2019 14:10:25 09/09/19 20 09/10/2019 CMP, serum or plasm a BUN 21 mg/dL 8-27 Not Available [facility] ([facility]) [address] [place], [address], 09/10/2019 14:10:25 09/09/19 20 09/10/2019 CMP, serum or plasm a creatinine 0.88 mg/dL 0.57-1 .00 Not Available [facility] ([facility]) [address] [place], [address], 09/10/2019 14:10:25 09/09/19 20 09/10/2019 CMP, serum or plasm a eGFR if nonafricn AM 61 mL/mi n/1.7 3 >59 Not Available [facility] ([facility]) [address] [place], [address], 09/10/2019 14:10:25 09/09/19 20 09/10/2019 CMP, serum or plasm a eGFR if africn AM 70 mL/mi n/1.7 3 >59 Not Available [facility] ([facility]) [address] [place], [address], 09/10/2019 14:10:25 09/09/19 20 09/10/2019 CMP, serum or plasm a BUN/creatini ne ratio 24 12-28 Not Available [facility] ([facility]) [address] [place], [address], 09/10/2019 14:10:25 09/09/19 20 09/10/2019 CMP, serum or plasm a sodium 140 mmol/ L 134-14 4 Not Available [facility] ([facility]) [address] [place], [address], 09/10/2019 14:10:25 09/09/19 20 09/10/2019 CMP, serum or plasm a potassium TNP mmol/ L Test not perfo rmed. Speci men recei deni uncen trifu ged or impro perly centr ifuge d. Not Available [facility] ([facility]) [address] [place], [address], 09/10/2019 14:10:25 09/09/19 20 09/10/2019 CMP, serum or plasm a chloride 101 mmol/ L 96-106 Not Available [facility] ([facility]) [address] [place], [address], 09/10/2019 14:10:25 09/09/19 20 09/10/2019 CMP, serum or plasm a carbon dioxide, total 23 mmol/ L 20-29 Not Available [facility] ([facility]) [address] [facility] [place] [place], [address], 09/10/2019 14:10:25 09/09/19 20 09/10/2019 CMP, serum or plasm a calcium 9.9 mg/dL 8.7-10 .3 Not Available [facility] ([facility]) [address] [facility] [place] [place], [address], 09/10/2019 14:10:25 09/09/19 20 09/10/2019 CMP, serum or plasm a protein, total 7.2 g/dL 6.0-8. 5 Not Available [facility] ([facility]) [address] [facility] [place], [address], 09/10/2019 14:10:25 09/09/19 20 09/10/2019 CMP, serum or plasm a albumin 4.4 g/dL 3.6-4. 6 Ple ase note refer ence luis f ruffin Not Available [facility] ([facility]) [address] [facility] [place], [address], 09/10/2019 14:10:25 09/09/19 20 09/10/2019 CMP, serum or plasm a globulin, total 2.8 g/dL 1.5-4. 5 Not Available [facility] ([facility]) [address] [facility] [place], [address], 09/10/2019 14:10:25 09/09/19 20 09/10/2019 CMP, serum or plasm a A/G ratio 1.6 1.2-2. 2 Not Available [facility] ([facility]) [address] [facility] [place], [address], 09/10/2019 14:10:25 09/09/19 20 09/10/2019 CMP, serum or plasm a bilirubin, total 0.3 mg/dL 0.0-1. 2 Not Available [facility] ([facility]) [address] [facility] [place], [address], 09/10/2019 14:10:25 09/09/19 20 09/10/2019 CMP, serum or plasm a alkaline phosphatase 93 IU/L 39-117 Not Available [facility] ([facility]) [address] [place], [address], 09/10/2019 14:10:25 09/09/19 20 09/10/2019 CMP, serum or plasm a AST (SGOT) 13 IU/L 0-40 Not Available [facility] ([facility]) [address] [place], [address], 09/10/2019 14:10:25 09/09/19 20 09/10/2019 CMP, serum or plasm a ALT (SGPT) 12 IU/L 0-32 Not Available [facility] ([facility]) [address] [place], [address], 09/10/2019 14:10:25 09/09/19 20 09/10/2019 lipid panel , serum cholesterol, total 221 mg/dL 100-19 9 above high normal Not Available [facility] ([facility]) [address] [place], [address], 09/10/2019 14:10:26 09/09/19 20 09/10/2019 lipid panel , serum triglyceride s 100 mg/dL 0-149 Not Available [facility] ([facility]) [address] [place], [address], 09/10/2019 14:10:26 09/09/19 20 09/10/2019 lipid panel , serum HDL cholesterol 60 mg/dL >39 Not Available [facility] ([facility]) [address] [place], [address], 09/10/2019 14:10:26 09/09/19 20 09/10/2019 lipid panel , serum VLDL cholesterol mati 20 mg/dL 5-40 Not Available [facility] ([facility]) [address] [place], [address], 09/10/2019 14:10:26 09/09/19 20 09/10/2019 lipid panel , serum LDL cholesterol calc 141 mg/dL 0-99 above high normal Not Available [facility] ([facility]) [address] [facility], [place], [address], 09/10/2019 14:10:26 09/09/19 20 09/10/2019 lipid panel , serum comment: NURSE EXAMINER Not Available [facility] ([facility]) [address] [facility], [place], [address], 09/10/2019 14:10:26 09/09/19 20 09/10/2019 TSH, ultra -sens itive , serum TSH 2.750 uIU/m L 0.450- 4.500 Not Available [facility] ([facility]) [address] [facility], [place], [address], 09/10/2019 14:10:26 08/18/19 20 08/18/2019 US, duple x, venou s, lower extre mity No observ ation record ed. [address], [address], 08/22/2019 13:31:13 08/18/19 20 08/18/2019 XR, knee, 3 view No observ ation record ed. [address] (Imaging) [address] [place] [address], [phone], 08/22/2019 13:31:13 Result Notes None recorded. Problems No Known Problems Procedures Surgical History None recorded. Imaging Results Imaging Date Name Status LastModified by Organiz ation Details LastModified Time 08/18/2019 US, duplex, venous, lower extremity completed [address], [address], 08/22/2019 13:31:13 08/18/2019 XR, knee, 3 view completed [address] (Imaging) [address] [place] [address], [id number], 08/22/2019 13:31:13 Procedure Notes None recorded. Medical Equipment None Reported. Allergies Allergen ID Allergen Name Allergen Category Reaction Reaction Severity Criticality Documentation Date Start Date Code Code System Note Provider Name and Address Organization Details Recorded Time 608502 Iodinated contrast media (substanc e) medicatio n other severe Not available 09/04/2018 35058 2003 SNOMED Amelia Aragon MA [facility], [place] - [facility] 9 10:26:17 Medications Name Sig Start Date Stop Date Status Note LastModified by Organization Details LastModified Time atorvastati n 20 mg tablet TAKE 1 TABLET BY MOUTH ONCE DAILY AT BEDTIME active Not Available Not Available No t Available azithromyci n 250 mg tablet 03/18 completed Not Available Not Available Not Available meclizine 12.5 mg tablet take 1-2 tablets up to three times a day as needed for vertigo 03/31 completed Not Available Not Available Not Available acetaminoph en 300 mg-codeine 30 mg tablet Take 1 tablet every 6 hours by oral route as needed. 2019 active Not Available Not Available Not Avai lable Euthyrox 100 mcg tablet Take 1 tablet by mouth once daily 2020 active Not Available Not Available Not Avai lable famotidine 20 mg tablet Take 1 tablet twice a day by oral route. 2019 active Not Available Not Available Not Avai lable Vitamin D2 1,250 mcg (50,000 unit) capsule Take 1 capsule every week by oral route. 2019 active Not Available Not Available Not Avai lable cefdinir 300 mg capsule Take 1 capsule every 12 hours by oral route. 06/06 completed Not Available Not Available Not Available fluticasone propionate 50 mcg/actuati on nasal spray,suspe nsion Ardara 1 spray every day by intranasa l route. 2018 active Not Available Not Available Not Avai lable amoxicillin 875 mg-potassiu m clavulanate 125 mg tablet Take 1 tablet every 12 hours by oral route as directed for 15 days. 2019 active Not Available Not Available Not Avai lable Mucinex 600 mg tablet, extended release Take 1 tablet every 12 hours by oral route as directed for 7 days. 03/31 completed Not Available Not Available Not Available losartan 100 mg-hydrochl orothiazide 12.5 mg tablet TAKE 1 TABLET BY MOUTH ONCE DAILY IN THE MORNING 2019 active Not Available Not Available Not Avai lable Asprin Ec Low Dose active Not Available Not Available Not Available ProAir HFA 90 mcg/actuati on aerosol inhaler Inhale 2 puffs every day by inhalatio n route. 03/31 completed Not Available Not Available Not Available Vitals Date Recorded Body height Body mass index (BMI) Body weight Heart rate Respiratory rate Body temperature Systolic blood pressure Diastolic blood pressure Provider Name and Address Organization Details Last Updated DateTime 9 163.83 cm 27.5 kg/m2 84208.7 6 g 74 /min 20 /min 97.5 [degF] 147 mm[Hg] 77 mm[Hg] Jenny Strong [facility] 9 12:09:53 Date Recorded Body height Oxygen saturation Oxygen saturation in Arterial blood by Pulse oximetry Heart rate Respiratory rate Body mass index (BMI) Body weight Body temperature Systolic blood pressure Diastolic blood pressure Provider Name and Address Organization Details Last Updated DateTime 9 163.83 cm 93 % 93 % 100 /min 18 /min 27.4 kg/m2 38329.6 6 g 97.9 [degF] 130 mm[Hg] 82 mm[Hg] Lashell Karimi RN [facility] 9 10:11:15 Date Recorded Body height Body mass index (BMI) Body weight Heart rate Oxygen saturation Oxygen saturation in Arterial blood by Pulse oximetry Systolic blood pressure Diastolic blood pressure Provider Name and Address Organization Details Last Updated DateTime 0 163.83 cm 27.6 kg/m2 46073.3 6 g 87 /min 94 % 94 % 122 mm[Hg] 72 mm[Hg] Rox Serrano [facility] 0 11:29:15 Date Recorded Body height Oxygen saturation Oxygen saturation in Arterial blood by Pulse oximetry Body mass index (BMI) Body weight Heart rate Body temperature Respiratory rate Systolic blood pressure Diastolic blood pressure Provider Name and Address Organization Details Last Updated DateTime 0 163.83 cm 99 % 99 % 27.2 kg/m2 14579.0 9 g 79 /min 98 [degF] 16 /min 104 mm[Hg] 62 mm[Hg] Columba ZachariahJOS [place] - [place] 0 10:02:16 Social History Question Answer Notes LastModified by Organizat ion Details LastModified Time Tobacco Smoking Status Never Smoker Amelia BudtieraMIRELA, [place] - [place] 09/04/2018 10:31:05 What Is Your Level Of Alcohol Consumption? None Information not available 09/09/2019 What Is Your Level Of Caffeine Consumption? Moderate Coffee Information not available 09/09/2019 How Much Tobacco Do You Chew? None Information not available 09/09/2019 Do You Or Have You Ever Used E-cigarettes Or Vape? Never Used Electronic Cigarettes [email or web address] Information not available 03/19/2019 What Was The Date Of Your Most Recent Tobacco Screening? 12/08/2019 Information not available 12/08/2019 Do You Or Have You Ever Used Smokeless Tobacco? Never Used Smokeless Tobacco [email or web address] Information not available 03/19/2019 How Much Tobacco Do You Smoke? No Information not available 10/25/2018 General Stress Level High Due To Knee Pain Information not available 09/09/2019 On What Date Was Tobacco Cessation Counseling Provided? 12/08/2019 Information not available 12/08/2019 How Many Years Have You Smoked Tobacco? 0 Information not available 10/25/2018 Sex: Unknown Functional Status None recorded. Mental Status None recorded. Family History Relationship Description Onset Age of this Age Resolved Age Notes LastModified by Organization Details LastModified Time Father No current problems or disability [email or web address] Not available 09/04 10:30:56 Mother No current problems or disability [email or web address] Not available 09/04 10:30:56 Medical History Condition Response Coronary Artery Disease N Other N High Blood Pressure Y Atrial Fibrillation N Kidney or Bladder Problems N Thyroid Problems Y GI Problems N Depression N COPD N Blood Clots N Skin Problems N Eating Disorder N Anemia N Heart Attack (ME) N Anxiety Disorder N Diabetes N Muscle, Joint, or Bone Problems N Seizures/Epilepsy N Acid Reflux (GERD) N Cancer N Stroke N Asthma N Allergies N ADHD N Substance Abuse N High Cholesterol N Hepatitis N Liver Disease N Schizophrenia N Headaches N Osteoporosis N Heart Failure N Gynecological History Statement/Question Response Date of Last Mammogram Obstetrics History GPAL:G 0 P 0 0 0 0 Past Encounters Encounter ID Performer Location Encounter Start Date Encounter Closed Date Diagnosis/Indication Diagnosis SNOMED-CT Code Diagnosis ICD10 Code Diagnosis Note [id number] Kathryn Mcclelland MD [facility] [address] [place] [address] 09/04/2018 10:03:19 09/09/2018 09:46:49 Scoliosis of lumbar spine 008335444 M41.87 better with physical therapy Bilateral arthritis of knees 3507867981 553470 M13.861 M13.862 takes tylenol arthritis Essential hypertension 62089300 I10 Mild inter mittent asthma 464771174 J45.20 Hypothyroidism 89449396 E03.9 Screening mammography 24 017329 Z12.31 Hyperlipid emia screening 388393000 Z13.658 [id number] JASSI WHITTAKER [facility] [address] [place] [address] 10/25/2018 13:52:04 10/28/2018 08:03:14 Acute maxillary sinusitis 70714263 J01.00 Respirator y tract congestion 527880753 R09.89 [id number] Kathryn Mcclelland MD [facility] [address] [place] [address] 12/02/2018 09:48:44 12/09/2018 09:59:25 Hypothyroidism 20177826 E03.9 Essential hypertension 70753549 I10 Mild inter mittent asthma 011787009 J45.20 Hyperlipidemia 29541539 E78.2 [id number] Kathryn Mcclelland MD [facility] [address] [place] [address] 03/18/2019 13:31:33 03/19/2019 08:11:07 Vertigo 103134428 R42 tinnitus but no deafness, nausea, or vomiting. [id number] Andrew Maldonado MD [facility] [address] [place] [address] 03/31/2019 11:17:02 04/11/2019 14:28:19 Chronic sinusitis 24904094 J32.9 Dysfunctio n of eustachian tube 28098317 H69.93 [id number] Kathryn Mcclelland MD [facility] [address] [place] [address] 06/06/2019 09:53:20 06/16/2019 14:25:36 Adult health examination 517320042 Z00.00 [id number] Kathryn Mcclelland MD [facility] [address] [place] [address] 08/22/2019 10:46:33 08/22/2019 15:17:22 Current tear of medial cartilage AND/OR meniscus of knee 078901210 S83.241D Depression screening 171 565411 Z13.31 patient does not appear to be significan tly depressed. [id number] Kathryn Mcclelland MD [facility] [address] [place] [address] 09/09/2019 09:46:17 09/15/2019 10:58:55 Current tear of medial cartilage AND/OR meniscus of knee 277198051 S83.241D Adult heal th examination 428656766 Z00.00 [id number] Kathryn Mcclelland MD [facility] [address] [place] [address] 12/08/2019 09:31:53 12/11/2019 20:37:12 Current tear of medial cartilage AND/OR meniscus of knee 202965445 S83.241D Patient will contact DR. Buckner to see when he can do arthroscop ic surgery or even replace the knee. Health Concerns Section Related Observation LastModified by Organization Detai ls LastModified Time None Recorded Concern Status LastModified by Organization Details LastModified Time None Recorded Advance Directives Directive None Recorded Payers Encounter Date Sequence Insurance Name Policy Number Policy Steele Covered Member ID Steele Member ID Guarantor Name 03/31/2019 1 [facility] (HMO) [id number] Gwendolyn Carbajal Nelson [id number] [facility] 06/06/2019 1 [facility] (MEDICARE REPLACEMENT/A DVANTAGE - HMO) [id number] Gwendolyn Carbajal Nelson [id number] [facility] 08/22/2019 1 [facility] (MEDICARE REPLACEMENT/A DVANTAGE - HMO) [id number] [facility] [id number] [facility] 09/09/2019 1 [facility] (MEDICARE REPLACEMENT/A DVANTAGE - HMO) [id number] [facility] [id number] [facility] 12/08/2019 1 [facility] (MEDICARE REPLACEMENT/A DVANTAGE - HMO) [id number] [facility] [id number] [facility] Notes Date Note Type Note Provider Name and Address Organization Details Recorded Time 03/31/2019 text/html Sinusitis/Allerg yRepo rted bypatient.Associated Symptoms:nasal discharge from both nostrils;difficulty breathing;sore throat;ear fullness Onset/Timing:chronic Quality:hoarseness;ac sujata;productive cough Duration:long standing; constant; worse over last 4 months Severity:does not limit daily activities Context:no recent upper respiratory infection; no recent sick contacts Risk Factors:no current smoking or tobacco use Pt complaining of sinus congestion with drainage and obstruction. She has had problems for years but it has been worse since the spring. She also has blockage of her ears with mild off balance Andrew Maldonado MD [address] [place], [address], [facility] 03/31/2019 12:48:14 06/06/2019 text/html Medicare Annual Wellness VisitReported bypatient.Diet and Nutrition:healthy diet Fracture Risk:no history of fractures; no recent explained fracture; no sudden unexplained fractures; no previous musculoskeletal injuries Physical Activity:exercises on a regular basis; recent increase in physical activity; good physical condition Depression Risk:never feels sad, empty, or tearful; no loss of interest in activities; no significant changes in weight; no sleep disturbances or insomnia; no agitation; no loss of energy; no feelings of worthlessness or guilt; no thoughts of suicide; no history of depression; no history of mood disorders Orientation:no disorientation to time; no disorientation to date; no disorientation to place Concentration and Memory:no decreased concentrating ability; no memory lapses or loss; does not forget words Speech/Motor difficulties:no speech difficulties; no difficulty expressing formulated concepts; no difficulty with fine manipulative tasks; no difficulty writing/copying; no slowed reaction time; does not knock things over when trying to pick them up Hearing:no loss of hearing Vision:no vision problems Activities of Daily Living:able to bathe with limited or no assistance; able to contol urination and bowels; able to dress with limited or no assistance; able to feed self with limited or no assistance; able to get out of chair or bed with limited or no assistance; able to groom with limited or no assistance; able to toilet with limited or no assistance Instrumental Activities of Daily Living:able to do house work with limited or no assistance; able to grocery shop with limited or no assistance; able to manage medications with limited or no assistance; able to manage money with limited or no assistance; able to prepare meals with limited or no assistance; able to use the phone with limited or no assistance Falls Risk Assessment:no frequent falls while walking; no fall in the past year; no dizziness/vertigo Home Safety:no unsafe corinne hazzards; working smoke/CO detectors; use of seatbelts; good lighting in the home Kathryn Mcclelland MD Attn: [address]ing,[address] [place], [address], [facility] 06/16/2019 14:09:26 08/22/2019 text/html No blood clots s een on venous doppler ultrasound of the right leg. Left leg is pain free. Symptoms present intermittently for about a month. No previous surgery on the right leg. Kathryn Mcclelland MD Attn: [address] [place], [address], [facility] 08/22/2019 13:32:29 09/09/2019 text/html KneeReported bypatient.[facility]; anterior; medial Quality:stabbing; throbbing; sharp Severity:moderate Timing:gradual; recurrent; occasional Context:overuse Alleviating Factors:sitting; lying down; position change; heat; ice; rest; elevation; stretching; limited weight bearing; narcotics; NSAIDs Aggravating Factors:standing; walking; lifting; carrying; twisting; bending/squatting; weight bearing; exercise; changing clothes; getting out of bed; going from sit to stand; upstairs; downstairs; cold weather; damp weather Associated Symptoms:no drainage; no fever; no chills; no weight loss; no change in bowel/bladder habits;weakness;swell ing;catching/locking; popping/clicking;correa ling;grinding;instabi lity;radiation down leg Prior Imaging:MRI Working:noNotes:tende r to palpation along the medial meniscus of the knee Kathryn Mcclelland MD Attn: [address]ing[address] [place], [address], [facility] 09/14/2019 23:39:17 12/08/2019 text/html KneeReported bypatient.Location:an terior; medial Quality:stabbing; throbbing; sharp; frequent; worsening Severity:severe Timing:chronic Alleviating Factors:sitting; lying down; heat; ice; rest; elevation; stretching; limited weight bearing; narcotics Aggravating Factors:standing; walking; lifting; carrying; bending/squatting; weight bearing; exercise; changing clothes; getting out of bed; going from sit to stand; upstairs; downstairs; cold weather; damp weather Associated Symptoms:no drainage; no fever; no chills; no weight loss; no change in bowel/bladder habits;weakness;swell ing;warmth;catching/l ocking;popping/clicki ng;buckling;grinding; instability;radiation down leg Katrhyn Mcclelland MD Attn: Accounting[address] [place], [address], [facility] 12/11/2019 00:34:09 OBGyn Episode No OBEpisode recorded.
--- OUTSIDE RECORDS SUMMARY | 2024-11-22 11:38 | XMS_ITS | CONTINUITY OF CARE DOCUMENT ---
Author Name [email or web address] Address Unknown Organization [facility] Address [address] [place] [address] Phone [phone] Care Team Providers Care Chief Of Production Name Role Phone Siomara VENEGAS, Christophe Unavailable RONAN VENEGAS, RETA Unavailable [phone] KALE VENEGAS, JUAN Gómez Unavailable INSURANCE PROVIDERS Payer name Policy type / Coverage type [place] red libertarian ID [employer] MEDICARE COMPLETE HMO Other [id number]
== END 2024-11-21 09:42 | disposition home or self-care (01) ==
PROVIDERS: PCP Family Medicine; Visit Provider Family Medicine
DX: E03.9 Hypothyroidism, unspecified (principal); D64.9 Anemia, unspecified; N18.31 Chronic kidney disease, stage 3a
CPT/HCPCS: 36415; 80048; 82728; 83540; 83550; 84439; 84443; 85027

== ENCOUNTER 2025-01-20 06:53 | Outpatient (CLI) | payer MEDICARE, SELFPAY ==
--- OUTSIDE RECORDS SUMMARY | 2025-01-20 06:57 | XMS_ITS | Data Portability ---
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 Buckner as soon as possible. Has been staying at home, wearing masks, no signs of respiratory infection.. [email or web address] Not available 12/08/2019 10:26:14 Plan of Treatment Reminders Order Date Submit Date Provider Last Modified By Organization Details Last Modified Time Details Appointments None recorded. Lab CMP, serum or plasma 2019 020 [facility], [address] [place] [address], [place] [address], [place], [address], 0 14:10:25 CBC w/ auto diff 2019 020 [facility], [address] [place] [address], [address], [place], [address], 0 14:10:24 lipid panel, serum 2019 020 [facility], [address] [place] [address], [address], [place], [address], 0 14:10:26 TSH, ultra-sen sitive, serum 2019 020 [facility], [address], [address], [place], [address], 0 14:10:26 lipid panel, serum 2018 019 [facility], [address] [facility] [address] [facility], [address], [place], [address], 9 06:51:48 CBC w/ auto diff 2018 019 [facility], [address] [facility], [address], [place], [address], 9 06:51:47 CMP, serum or plasma 2018 019 [facility], [address] [facility], [address], [place], [address], 9 06:51:47 vitamin D, 25-hydrox y, total, serum 2018 019 [facility], [address], [address], [place], [address], 9 06:51:49 TSH, ultra-sen sitive, serum 2018 019 [facility], [address] [facility], [address], [place], [address], 9 06:51:49 Referral orthopedi c referral - Patient has appt 07/28/20192019 [email or web address] Not available 0 14:40:23 Procedures None recorded. Surgeries None recorded. Imaging None recorded. Medication Orders acetamino phen 300 mg-codein e 30 mg tablet 2019 020 [facility], [address] [facility], [place], [address], 0 10:35:14 Vitamin D2 1,250 mcg (50,000 unit) capsule 2019 020 [facility], [address] [place], [address], 0 10:33:14 [facility]ir 300 mg [facility] [address] [place], [address], 9 10:05:04 fluticaso ne propionat e 50 mcg/actua tion nasal spray,[facility] 2018 019 [facility], [address] [place], [address], 9 12:47:50 Patient TargetsNo targets recorded. Patient Instructions Encounter Date Encounter Id Patient Instructions Last Modified By Organization Details Last Modified Time 08/22/2019 [id number] meniscus tear: care instructions [email or web address] Not available 08/22/2019 11:51:23 09/09/2019 [id number] meniscus tear: care instructions Not available 09/09/2019 10:33:03 12/08/2019 [id number] meniscus tear: care instructions [email or web address] Not available 12/08/2019 10:26:15 Reason for Referral [...] x10e3 /uL 3.4-10 .8 Not Available [facility] ([facility]) [address] [facility], [place], [address], 06/08/2019 06:51:47 06/06/2006/07/2019 CBC w/ auto diff RBC 4.24 x10e6 /uL 3.77-5 .28 Not Available [facility] ([facility]) [address] [place], [address], 06/08/2019 06:51:47 06/06/2006/07/2019 CBC w/ auto diff hemoglobin 13.3 g/dL 11.1-1 5.9 Not Available [facility] ([facility]) [address] [place], [address], 06/08/2019 06:51:47 06/06/2006/07/2019 CBC w/ auto diff hematocrit 39.5 % 34.0-4 6.6 Not Available [facility] ([facility]) [address] [place], [address], 06/08/2019 06:51:47 06/06/2006/07/2019 CBC w/ auto diff MCV 93 fL 79-97 Not Available [facility] ([facility]) [address] [place], [address], 06/08/2019 06:51:47 06/06/2006/07/2019 CBC w/ auto diff MCH 31.4 pg 26.6-3 3.0 Not Available [facility] ([facility]) [address] [place], [address], 06/08/2019 06:51:47 06/06/2006/07/2019 CBC w/ auto diff MCHC 33.7 g/dL 31.5-3 5.7 Not Available [facility] ([facility]) [address] [place], [address], 06/08/2019 06:51:47 06/06/2006/07/2019 CBC w/ auto diff RDW 13.1 % 12.3-1 5.4 Not Available [facility] ([facility]) [address] [place], [address], 06/08/2019 06:51:47 06/06/20 19 06/07/2019 CBC w/ auto diff platelets 289 x10e3 /uL 150-45 0 Not Available [facility] ([facility]) [address] [facility], [place], [address], 06/08/2019 06:51:47 06/06/20 19 06/07/2019 CBC w/ auto diff neutrophils 54 % not estab. Not Available [facility] ([facility]) [address] [facility], [place], [address], 06/08/2019 06:51:47 06/06/20 19 06/07/2019 CBC w/ auto diff lymphs 35 % not estab. Not Available [facility] ([facility]) [address] [place], [address], 06/08/2019 06:51:47 06/06/2006/07/2019 CBC w/ auto diff monocytes 8 % not estab. Not Available [facility] ([facility]) [address] [facility], [place], [address], 06/08/2019 06:51:47 06/06/2006/07/2019 CBC w/ auto diff eos 3 % not estab. Not Available [facility] ([facility]) [address] [facility], [place], [address], 06/08/2019 06:51:47 06/06/2006/07/2019 CBC w/ auto diff basos 0 % not estab. Not Available [facility] ([facility]) [address] [facility], [place], [address], 06/08/2019 06:51:47 06/06/2006/07/2019 CBC w/ auto diff immature cells MAT SEWER Not Available [facility] ([facility]) [address] [place], [address], 06/08/2019 06:51:47 06/06/2006/07/2019 CBC w/ auto diff neutrophils (absolute) 3.2 x10e3 /uL 1.4-7. 0 Not Available [facility] ([facility]) [address] [place], [address], 06/08/2019 06:51:47 06/06/20 19 06/07/2019 CBC w/ auto diff lymphs (absolute) 2.1 x10e3 /uL 0.7-3. 1 Not Available [facility] ([facility]) [address] [place], [address], 06/08/2019 06:51:47 06/06/2006/07/2019 CBC w/ auto diff monocytes(ab solute) 0.5 x10e3 /uL 0.1-0. 9 Not Available [facility] ([facility]) [address] [place], [address], 06/08/2019 06:51:47 06/06/2006/07/2019 CBC w/ auto diff eos (absolute) 0.2 x10e3 /uL 0.0-0. 4 Not Available [facility] ([facility]) [address] [place], [address], 06/08/2019 06:51:47 06/06/2006/07/2019 CBC w/ auto diff baso (absolute) 0.0 x10e3 /uL 0.0-0. 2 Not Available [facility] ([facility]) [address] [place], [address], 06/08/2019 06:51:47 06/06/2006/07/2019 CBC w/ auto diff immature granulocytes 0 % not estab. Not Available [facility] ([facility]) [address] [place] [address], [address], 06/08/2019 06:51:47 06/06/20 19 06/07/2019 CBC w/ auto diff immature grans (abs) 0.0 x10e3 /uL 0.0-0. 1 Not Available [facility] ([facility]) [address] [place], [address], 06/08/2019 06:51:47 06/06/2006/07/2019 CBC w/ auto diff NRBC MAT SEWER Not Available [facility] ([facility]) [address] [place], [address], 06/08/2019 06:51:47 06/06/2006/07/2019 CBC w/ auto diff hematology comments: MAT SEWER Not Available [facility] ([facility]) [address] [place], [address], 06/08/2019 06:51:47 06/06/2006/07/2019 CMP, serum or plasm a glucose 106 mg/dL 65-99 above high normal Not Available [facility] ([facility]) [address] [place], [address], 06/08/2019 06:51:47 06/06/2006/07/2019 CMP, serum or plasm a BUN 24 mg/dL 8-27 Not Available [facility] ([facility]) [address] [place], [address], 06/08/2019 06:51:47 06/06/2006/07/2019 CMP, serum or plasm a creatinine 0.93 mg/dL 0.57-1 .00 Not Available [facility] ([facility]) [address] [place], [address], 06/08/2019 06:51:47 06/06/2006/07/2019 CMP, serum or plasm a eGFR if nonafricn AM 57 mL/mi n/1.7 3 >59 below low normal Not Available [facility] ([facility]) [address] [place], [address], 06/08/2019 06:51:47 06/06/2006/07/2019 CMP, serum or plasm a eGFR if africn AM 65 mL/mi n/1.7 3 >59 Not Available [facility] ([facility]) [address] [place], [address], 06/08/2019 06:51:47 06/06/2006/07/2019 CMP, serum or plasm a BUN/creatini ne ratio 26 12-28 Not Available [facility] ([facility]) [address] [place], [address], 06/08/2019 06:51:47 06/06/2006/07/2019 CMP, serum or plasm a sodium 142 mmol/ L 134-14 4 Not Available [facility] ([facility]) [address] [place], [address], 06/08/2019 06:51:47 06/06/2006/07/2019 CMP, serum or plasm a potassium 4.7 mmol/ L 3.5-5. 2 Not Available [facility] ([facility]) [address] [place], [address], 06/08/2019 06:51:47 06/06/2006/07/2019 CMP, serum or plasm a chloride 103 mmol/ L 96-106 Not Available [facility] ([facility]) [address] [place], [address], 06/08/2019 06:51:47 06/06/2006/07/2019 CMP, serum or plasm a carbon dioxide, total 22 mmol/ L 20-29 Not Available [facility] ([facility]) [address] [place], [address], 06/08/2019 06:51:47 06/06/2006/07/2019 CMP, serum or plasm a calcium 9.8 mg/dL 8.7-10 .3 Not Available [facility] ([facility]) [address] [place], [address], 06/08/2019 06:51:47 06/06/2006/07/2019 CMP, serum or plasm a protein, total 6.9 g/dL 6.0-8. 5 Not Available [facility] ([facility]) [address] [place], [address], 06/08/2019 06:51:47 06/06/2006/07/2019 CMP, serum or plasm a albumin 4.4 g/dL 3.5-4. 7 Not Available [facility] ([facility]) [address] [place], [address], 06/08/2019 06:51:47 06/06/2006/07/2019 CMP, serum or plasm a globulin, total 2.5 g/dL 1.5-4. 5 Not Available [facility] ([facility]) [address] [place], [address], 06/08/2019 06:51:47 06/06/2006/07/2019 CMP, serum or plasm a A/G ratio 1.8 1.2-2. 2 Not Available [facility] ([facility]) [address] [place], [address], 06/08/2019 06:51:47 06/06/2006/07/2019 CMP, serum or plasm a bilirubin, total 0.4 mg/dL 0.0-1. 2 Not Available [facility] ([facility]) [address] [place], [address], 06/08/2019 06:51:47 06/06/2006/07/2019 CMP, serum or plasm a alkaline phosphatase 99 IU/L 39-117 Not Available [facility] ([facility]) [address] [place], [address], 06/08/2019 06:51:47 06/06/2006/07/2019 CMP, serum or plasm a AST (SGOT) 15 IU/L 0-40 Not Available [facility] ([facility]) [address] [place], [address], 06/08/2019 06:51:47 06/06/2006/07/2019 CMP, serum or plasm a ALT (SGPT) 8 IU/L 0-32 Not Available [facility] ([facility]) [address] [place], [address], 06/08/2019 06:51:47 06/06/2006/07/2019 lipid panel , serum cholesterol, total 233 mg/dL 100-19 9 above high normal Not Available [facility] ([facility]) [address] [place], [address], 06/08/2019 06:51:48 06/06/2006/07/2019 lipid panel , serum triglyceride s 130 mg/dL 0-149 Not Available [facility] ([facility]) [address] [place], [address], 06/08/2019 06:51:48 06/06/2006/07/2019 lipid panel , serum HDL cholesterol 56 mg/dL >39 Not Available [facility] ([facility]) [address] [place], [address], 06/08/2019 06:51:48 06/06/2006/07/2019 lipid panel , serum VLDL cholesterol mati 26 mg/dL 5-40 Not Available [facility] ([facility]) [address] [place], [address], 06/08/2019 06:51:48 06/06/2006/07/2019 lipid panel , serum LDL cholesterol calc 151 mg/dL 0-99 above high normal Not Available [facility] ([facility]) [address] [place], [address], 06/08/2019 06:51:48 06/06/20 19 06/07/2019 lipid panel , serum comment: MAT SEWER Not Available [facility] ([facility]) [address] [place], [address], 06/08/2019 06:51:48 06/06/20 19 06/07/2019 vitam in [...] IOM (Inst itute of Medic ine). 2009. Dieta ry refer ence intak es for calci um and D. Elmer leigh [place]: [facility] Press . 2. Maryellen farnsworth [place], Osmani monk [place], Shanda off-F errar i [place], et al. Evalu ation , treat ment, and preve ntion of vitam in D defic iency : an Endoc rine Socie ty clini mati pract ice guide line. JCEM. 2010; 96(7) :1911 -30. Not Available [facility] ([facility]) [address] [place], [address], 06/08/2019 06:51:48 06/06/2006/07/2019 TSH, ultra -sens itive , serum TSH 0.188 uIU/m L 0.450- 4.500 below low normal Not Available [facility] ([facility]) [address] [place], [address], 06/08/2019 06:51:49 06/06/2006/08/2019 TSH, ultra -sens itive , serum T4,free (direct) 1.48 NG/dL 0.82-1 .77 Not Available [facility] ([facility]) [address] [place], [address], 06/08/2019 06:51:49 09/09/19 20 09/10/2019 CBC w/ auto diff WBC 7.3 x10e3 /uL 3.4-10 .8 Not Available [facility] ([facility]) [address] [place], [address], 09/10/2019 14:10:24 09/09/19 20 09/10/2019 CBC w/ auto diff RBC 4.45 x10e6 /uL 3.77-5 .28 Not Available [facility] ([facility]) [address] [place], [address], 09/10/2019 14:10:24 09/09/19 20 09/10/2019 CBC w/ auto diff hemoglobin 13.7 g/dL 11.1-1 5.9 Not Available [facility] ([facility]) [address] [place], [address], 09/10/2019 14:10:24 09/09/19 20 09/10/2019 CBC w/ auto diff hematocrit 41.4 % 34.0-4 6.6 Not Available [facility] ([facility]) [address] [place], [address], 09/10/2019 14:10:24 09/09/19 20 09/10/2019 CBC w/ auto diff MCV 93 fL 79-97 Not Available [facility] ([facility]) [address] [place], [address], 09/10/2019 14:10:24 09/09/19 20 09/10/2019 CBC w/ auto diff MCH 30.8 pg 26.6-3 3.0 Not Available [facility] ([facility]) [address] [place], [address], 09/10/2019 14:10:24 09/09/19 20 09/10/2019 CBC w/ auto diff MCHC 33.1 g/dL 31.5-3 5.7 Not Available [facility] ([facility]) [address] [facility] [place], [address], 09/10/2019 14:10:24 09/09/19 20 09/10/2019 CBC w/ auto diff RDW 12.4 % 11.7-1 5.4 Not Available [facility] ([facility]) [address] [facility], [place], [address], 09/10/2019 14:10:24 09/09/19 20 09/10/2019 CBC w/ auto diff platelets 324 x10e3 /uL 150-45 0 Not Available [facility] ([facility]) [address] [facility], [place], [address], 09/10/2019 14:10:24 09/09/19 20 09/10/2019 CBC w/ auto diff neutrophils 59 % not estab. Not Available [facility] ([facility]) [address] [facility], [place], [address], 09/10/2019 14:10:24 09/09/19 20 09/10/2019 CBC w/ auto diff lymphs 29 % not estab. Not Available [facility] ([facility]) [address] [facility], [place], [address], 09/10/2019 14:10:24 09/09/19 20 09/10/2019 CBC w/ auto diff monocytes 8 % not estab. Not Available [facility] ([facility]) [address] [facility], [place], [address], 09/10/2019 14:10:24 09/09/19 20 09/10/2019 CBC w/ auto diff eos 3 % not estab. Not Available [facility] ([facility]) [address] [facility], [place], [address], 09/10/2019 14:10:24 09/09/19 20 09/10/2019 CBC w/ auto diff basos 1 % not estab. Not Available [facility] ([facility]) [address] [facility], [place], [address], 09/10/2019 14:10:24 09/09/19 20 09/10/2019 CBC w/ auto diff immature cells MAT SEWER Not Available [facility] ([facility]) [address] [place], [address], 09/10/2019 14:10:24 09/09/19 20 09/10/2019 CBC w/ auto diff neutrophils (absolute) 4.3 x10e3 /uL 1.4-7. 0 Not Available [facility] ([facility]) [address] [place], [address], 09/10/2019 14:10:24 09/09/19 20 09/10/2019 CBC w/ auto diff lymphs (absolute) 2.1 x10e3 /uL 0.7-3. 1 Not Available [facility] ([facility]) [address] [place], [address], 09/10/2019 14:10:24 09/09/19 20 09/10/2019 CBC w/ auto diff monocytes(ab solute) 0.6 x10e3 /uL 0.1-0. 9 Not Available [facility] ([facility]) [address] [place], [address], 09/10/2019 14:10:24 09/09/19 20 09/10/2019 CBC w/ auto diff eos (absolute) 0.2 x10e3 /uL 0.0-0. 4 Not Available [facility] ([facility]) [address] [place], [address], 09/10/2019 14:10:24 09/09/19 20 09/10/2019 CBC w/ auto diff baso (absolute) 0.0 x10e3 /uL 0.0-0. 2 Not Available [facility] ([facility]) [address] [place], [address], 09/10/2019 14:10:24 09/09/19 20 09/10/2019 CBC w/ auto diff immature granulocytes 0 % not estab. Not Available [facility] ([facility]) [address] [facility], [place], [address], 09/10/2019 14:10:24 09/09/19 20 09/10/2019 CBC w/ auto diff immature grans (abs) 0.0 x10e3 /uL 0.0-0. 1 Not Available [facility] ([facility]) [address] [facility], [place], [address], 09/10/2019 14:10:24 09/09/19 20 09/10/2019 CBC w/ auto diff NRBC MAT SEWER Not Available [facility] ([facility]) [address] [facility], [place], [address], 09/10/2019 14:10:24 09/09/19 20 09/10/2019 CBC w/ auto diff hematology comments: MAT SEWER Not Available [facility] ([facility]) [address] [place], [address], 09/10/2019 14:10:24 09/09/19 20 09/10/2019 CMP, serum or plasm a glucose TNP mg/dL Test not perfo rmed. Speci men recei deni uncen trifu ged or impro perly centr ifuge d. Not Available [facility] ([facility]) [address] [place], [address], 09/10/2019 14:10:25 09/09/19 20 09/10/2019 CMP, serum or plasm a BUN 21 mg/dL 8-27 Not Available [facility] ([facility]) [address] [place], [address], 09/10/2019 14:10:25 09/09/19 20 09/10/2019 CMP, serum or plasm a creatinine 0.88 mg/dL 0.57-1 .00 Not Available [facility] ([facility]) [address] [place], [address], 09/10/2019 14:10:25 02/18/20 20 09/10/2019 CMP, serum or plasm a eGFR if nonafricn AM 61 mL/mi n/1.7 3 >59 Not Available [facility] ([facility]) [address] [facility], [place], [address], 09/10/2019 14:10:25 09/09/19 20 09/10/2019 CMP, serum or plasm a eGFR if africn AM 70 mL/mi n/1.7 3 >59 Not Available [facility] ([facility]) [address] [place], [address], 09/10/2019 14:10:25 09/09/19 20 09/10/2019 CMP, serum or plasm a BUN/creatini ne ratio 24 12-28 Not Available [facility] ([facility]) [address] [place], [address], 09/10/2019 14:10:25 09/09/19 20 09/10/2019 CMP, serum or plasm a sodium 140 mmol/ L 134-14 4 Not Available [facility] ([facility]) [address] [place], [address], 09/10/2019 14:10:25 09/09/19 20 09/10/2019 CMP, serum or plasm a potassium TNP mmol/ L Test not perfo rmed. Speci men recei deni uncen trifu ged or impro perly centr ifuge d. Not Available [facility] ([facility]) [address] [place], [address], 09/10/2019 14:10:25 09/09/19 20 09/10/2019 CMP, serum or plasm a chloride 101 mmol/ L 96-106 Not Available [facility] ([facility]) [address] [place], [address], 09/10/2019 14:10:25 09/09/19 20 09/10/2019 CMP, serum or plasm a carbon dioxide, total 23 mmol/ L 20-29 Not Available [facility] ([facility]) [address] [place], [address], 09/10/2019 14:10:25 09/09/19 20 09/10/2019 CMP, serum or plasm a calcium 9.9 mg/dL 8.7-10 .3 Not Available [facility] ([facility]) [address] [place], [address], 09/10/2019 14:10:25 09/09/19 20 09/10/2019 CMP, serum or plasm a protein, total 7.2 g/dL 6.0-8. 5 Not Available [facility] ([facility]) [address] [place], [address], 09/10/2019 14:10:25 09/09/19 20 09/10/2019 CMP, serum or plasm a albumin 4.4 g/dL 3.6-4. 6 Ple ase note refer ence luis f james e Not Available [facility] ([facility]) [address] [place], [address], 09/10/2019 14:10:25 09/09/19 20 09/10/2019 CMP, serum or plasm a globulin, total 2.8 g/dL 1.5-4. 5 Not Available [facility] ([facility]) [address] [place], [address], 09/10/2019 14:10:25 09/09/19 20 09/10/2019 CMP, serum or plasm a A/G ratio 1.6 1.2-2. 2 Not Available [facility] ([facility]) [address] [place], [address], 09/10/2019 14:10:25 09/09/19 20 09/10/2019 CMP, serum or plasm a bilirubin, total 0.3 mg/dL 0.0-1. 2 Not Available [facility] ([facility]) [address] [place], [address], 09/10/2019 14:10:25 09/09/19 20 09/10/2019 CMP, serum or plasm a alkaline phosphatase 93 IU/L 39-117 Not Available [facility]) [address] [facility], [place], [address], 09/10/2019 14:10:25 09/09/19 20 09/10/2019 CMP, serum or plasm a AST (SGOT) 13 IU/L 0-40 Not Available [facility] ([facility]) [address] [place], [address], 09/10/2019 14:10:25 09/09/19 20 09/10/2019 CMP, serum or plasm a ALT (SGPT) 12 IU/L 0-32 Not Available [facility] ([facility]) [address] [place], [address], 09/10/2019 14:10:25 09/09/19 20 09/10/2019 lipid panel , serum cholesterol, total 221 mg/dL 100-19 9 above high normal Not Available [facility] ([facility]) [address] [place], [address], 09/10/2019 14:10:26 09/09/19 20 09/10/2019 lipid panel , serum triglyceride s 100 mg/dL 0-149 Not Available [facility] ([facility]) [address] [place], [address], 09/10/2019 14:10:26 09/09/19 20 09/10/2019 lipid panel , serum HDL cholesterol 60 mg/dL >39 Not Available [facility] ([facility]) [address] [place], [address], 09/10/2019 14:10:26 09/09/19 20 09/10/2019 lipid panel , serum VLDL cholesterol mati 20 mg/dL 5-40 Not Available [facility] ([facility]) [address] [place], [address], 09/10/2019 14:10:26 09/09/19 20 09/10/2019 lipid panel , serum LDL cholesterol calc 141 mg/dL 0-99 above high normal Not Available [facility] ([facility]) [address] [facility], [place], [address], 09/10/2019 14:10:26 09/09/19 20 09/10/2019 lipid panel , serum comment: MAT SEWER Not Available [facility] ([facility]) [address] [facility], [place], [address], 09/10/2019 14:10:26 09/09/19 20 09/10/2019 TSH, ultra -sens itive , serum TSH 2.750 uIU/m L 0.450- 4.500 Not Available [facility] ([facility]) [address] [facility], [place], [address], 09/10/2019 14:10:26 08/18/19 20 08/18/2019 US, duple x, venou s, lower extre mity No observ ation record ed. [address], [address], 08/22/2019 13:31:13 08/18/19 20 08/18/2019 XR, knee, 3 view No observ ation record ed. [address] (Imaging) [address] [place] [address], [address], 08/22/2019 13:31:13 Result Notes None recorded. Problems No Known Problems Medical Equipment None Reported. Allergies Allergen ID Allergen Name Allergen Category Reaction Reaction Severity Criticality Documentation Date Start Date Code Code System Note Provider Name and Address Organization Details Recorded Time 881972 Iodinated contrast media (substanc e) medicatio n other severe Not available 09/04/2018 [id number] SNOMED MIRELA [place], [place] - [facility] 9 10:26:17 Medications Name Sig Start Date [...] propionate 50 mcg/actuati on nasal spray,suspe nsion [place] 1 spray every day by intranasa l [...] Updated DateTime 0 163.83 cm 27.6 kg/m2 20357.3 6 g 87 /min 94 % 94 % 122 mm[Hg] 72 mm[Hg] Rox Serrano [facility] 0 11:29:15 Date Recorded Body height Oxygen saturation Oxygen saturation in Arterial blood by Pulse oximetry Body mass index (BMI) Body weight Heart rate Body temperature Respiratory rate Systolic blood pressure Diastolic blood pressure Provider Name and Address Organization Details Last Updated DateTime 0 163.83 cm 99 % 99 % 27.2 kg/m2 07480.0 9 g 79 /min 98 [degF] 16 /min 104 mm[Hg] 62 mm[Hg] JOS Bolden [facility] 0 10:02:16 Date Recorded Body height Body mass index (BMI) Body weight Heart rate Respiratory rate Body temperature Systolic blood pressure Diastolic blood pressure Provider Name and Address Organization Details Last Updated DateTime 9 163.83 cm 27.5 kg/m2 72272.7 6 g 74 /min 20 /min 97.5 [degF] 147 mm[Hg] 77 mm[Hg] Jenny Ligia [facility] 9 12:09:53 Date Recorded Body height Oxygen saturation Oxygen saturation in Arterial blood by Pulse oximetry Heart rate Respiratory rate Body mass index (BMI) Body weight Body temperature Systolic blood pressure Diastolic blood pressure Provider Name and Address Organization Details Last Updated DateTime 9 163.83 cm 93 % 93 % 100 /min 18 /min 27.4 kg/m2 78010.6 6 g 97.9 [degF] 130 mm[Hg] 82 mm[Hg] Lashell Karimi RN [facility] 9 10:11:15 Social History Question Answer Notes LastModified by Organizat ion Details LastModified Time Tobacco Smoking Status Never Smoker MIRELA Montoya, [facility] 09/04/2018 10:31:05 What Is Your Level Of Caffeine Consumption? Moderate Coffee Information not available 09/09/2019 How Much Tobacco Do You Chew? None Information not available 09/09/2019 What Was The Date Of Your Most Recent Tobacco Screening? 12/08/2019 Information not available 12/08/2019 How Much Tobacco Do You Smoke? No Information not available 10/25/2018 General Stress Level High Due To Knee Pain Information not available 09/09/2019 On What Date Was Tobacco Cessation Counseling Provided? 12/08/2019 Information not available 12/08/2019 How Many Years Have You Smoked Tobacco? 0 Information not available 10/25/2018 Sex: Unknown Functional Status Question Answer Note LastModified by Organizat ion Details LastModified Time What is your level of alcohol consumption? None Information not available 09/09/2019 Do you or have you ever used smokeless tobacco? Never used smokeless tobacco [id number] Information not available 03/19/2019 Do you or have you ever used e-cigarettes or vape? Never used electronic cigarettes Information not available 03/19/2019 Mental Status None recorded. Family History Relationship Description Onset Age of this Age Resolved Age Notes LastModified by Organization Details LastModified Time Father No current problems or disability [email or web address] Not available 09/04 10:30:56 Mother No current problems or disability [email or web address] Not available 09/04 10:30:56 Medical History Condition Response Coronary Artery Disease N Other N High Blood Pressure Y Atrial Fibrillation N Thyroid Problems Y Kidney or Bladder Problems N GI Problems N Depression N COPD N Blood Clots N Skin Problems N Eating Disorder N Anemia N Heart Attack (MT) N Anxiety Disorder N Diabetes N Muscle, Joint, or Bone Problems N Seizures/Epilepsy N Acid Reflux (GERD) N Cancer N Stroke N Asthma N Allergies N ADHD N Substance Abuse N High Cholesterol N Hepatitis N Liver Disease N Schizophrenia N Headaches N Heart Failure N Osteoporosis N Gynecological History Statement/Question Response Date of Last Mammogram Obstetrics History GPAL:G 0 P 0 0 0 0 Past Encounters Encounter ID Performer Location Encounter Start Date Encounter Closed Date Diagnosis/Indication Diagnosis SNOMED-CT Code Diagnosis ICD10 Code Diagnosis Note [id number] Kathryn Mcclelland MD [facility] [address] [place] [address] 09/04/2018 10:03:19 09/09/2018 09:46:49 Scoliosis of lumbar spine 407669786 M41.87 better with physical therapy Bilateral arthritis of knees 3442602408 547197 M13.861 M13.862 takes tylenol arthritis Essential hypertension 70191084 I10 Mild inter mittent asthma 519302469 J45.20 Hypothyroidism 68350950 E03.9 Screening mammography 24 789292 Z12.31 Hyperlipid emia screening 346644746 Z13.456 [id number] TYSON WHITTAKER-C [facility] [address] [place] [address] 10/25/2018 13:52:04 10/28/2018 08:03:14 Acute maxillary sinusitis 86765563 J01.00 Respirator y tract congestion 214826272 R09.89 [id number] Kathryn Mcclelland MD [facility] [address] [place] [address] 12/02/2018 09:48:44 12/09/2018 09:59:25 Hypothyroidism 58406765 E03.9 Essential hypertension 70631997 I10 Mild inter mittent asthma 305341719 J45.20 Hyperlipidemia 98542849 E78.2 [id number] Kathryn Mcclelland MD [facility] [address] [place] [address] 03/18/2019 13:31:33 03/19/2019 08:11:07 Vertigo 279479334 R42 tinnitus but no deafness, nausea, or vomiting. [id number] Andrew Maldonado MD [facility] [address] [address] 03/31/2019 11:17:02 04/11/2019 14:28:19 Chronic sinusitis 75173538 J32.9 Dysfunctio n of eustachian tube 59081777 H69.93 [id number] Kathryn Mcclelland MD [facility] [address] [place] [address] 06/06/2019 09:53:20 06/16/2019 14:25:36 Adult health examination 273680053 Z00.00 [id number] Kathryn Mcclelland MD [facility] [address] [place] [address] 08/22/2019 10:46:33 08/22/2019 15:17:22 Current tear of medial cartilage AND/OR meniscus of knee 752792719 S83.241D Depression screening 171 729008 Z13.31 patient does not appear to be significan tly depressed. [id number] Kathryn Mcclelland MD [facility] [address] [place] [address] 09/09/2019 09:46:17 09/15/2019 10:58:55 Current tear of medial cartilage AND/OR meniscus of knee 626544615 S83.241D Adult heal th examination 225592578 Z00.00 [id number] Kathryn Mcclelland MD [facility] [address] [place] [address] 12/08/2019 09:31:53 12/11/2019 20:37:12 Current tear of medial cartilage AND/OR meniscus of knee 061754497 S83.241D Patient will contact DR. Buckner to see when he can do arthroscop ic surgery or even replace the knee. Health Concerns Section Related Observation LastModified by Organization Detai ls LastModified Time None Recorded Concern Status LastModified by Organization Details LastModified Time None Recorded Advance Directives Directive None Recorded Payers Insurance Date Sequence Insurance Name Policy Number Policy Steele Covered Member ID Steele Member ID Guarantor Name 01/24/2019 1 [facility] [id number] [facility] [id number] [facility] 12/11/2019 1 [facility] (MEDICARE REPLACEMENT/A DVANTAGE - HMO) [id number] [facility] [id number] [facility] Notes Date Note Type Note Provider [...] mild off balance Andrew Maldonado MD [address] [place], [address], [facility] 03/31/2019 12:48:14 06/06/2019 text/html Medicare Annual Wellness [...] home Kathryn Mcclelland MD Attn: [address] [place], [address], [facility] 06/16/2019 14:09:26 08/22/2019 text/html No blood clots s een on venous doppler ultrasound of the right leg. Left leg is pain free. Symptoms present intermittently for about a month. No previous surgery on the right leg. Kathryn Mcclelland MD Attn: [employer] [place], [address], [facility] 08/22/2019 13:32:29 09/09/2019 text/html KneeReported bypatient.Location:ri ght; anterior; medial Quality:stabbing; throbbing; sharp Severity:moderate Timing:gradual; [...] knee Kathryn Mcclelland MD Attn: [address] [place], [address], [facility] 09/14/2019 23:39:17 12/08/2019 text/html KneeReported bypatient.Location:an terior; [...] habits;weakness;swell ing;warmth;catching/l ocking;popping/clicki ng;buckling;grinding; instability;radiation down leg Kathryn Mcclelland MD Attn: [address] [place], [address], [place] [facility] 12/11/2019 00:34:09 OBGyn Episode No OBEpisode recorded.
[2025-01-20 08:40] LABS: Free T4 Free Thyroxine. 0.61 ng/dL (0.78-2.19)
[2025-01-20 08:48] LABS: Thyroid Stimulating Hormone 23.000 uIU/mL (0.465-4.680)
== END 2025-01-20 06:54 | disposition home or self-care (01) ==
PROVIDERS: PCP Family Medicine; Visit Provider Family Medicine
DX: E03.9 Hypothyroidism, unspecified (principal)
CPT/HCPCS: 36415; 84439; 84443

== ENCOUNTER 2025-01-30 07:20 | Outpatient (CLI) | payer MEDICARE, SELFPAY ==
--- OUTSIDE RECORDS SUMMARY | 2025-01-30 07:25 | XMS_ITS | Data Portability ---
Author Organization [facility] MYAAntonino Victor Address [address] [place] [address] Care Team Providers Care Grinder Set Up Operator Universal Name Role Phone KATHRYN MCCLELLAND Primary Care Provider Unavailabl e Assessment Encounter Date Assessment Date Assessment LastModified by Organization Details LastModified Time 06/06/2019 06/06/2019 got flu shot at [facility] already [email or web address] Not available 06/06/2019 10:27:16 12/08/2019 12/08/2019 wants to get her knee fixed by Dr. Buckner as soon as possible. Has been staying at home, wearing masks, no signs of respiratory infection.. [email or web address] Not available 12/08/2019 10:26:14 Plan of Treatment Reminders Order Date Submit Date Provider Last Modified By Organization Details Last Modified Time Details Appointments None recorded. Lab CMP, serum or plasma 2019 020 [facility], [address] [place] [address], [place] [address], [place], [address], 0 14:10:25 CBC w/ auto diff 2019 020 [facility], [address] [place] [address], [address], [place], [address], 0 14:10:24 lipid panel, serum 2019 020 [facility], [address] [place] [address], [address], [place], [address], 0 14:10:26 TSH, ultra-sen sitive, serum 2019 020 [facility], [address], [address], [place], [address], 0 14:10:26 lipid panel, serum 2018 019 [facility], [address] [facility], [address], [place], [address], 9 06:51:48 CBC w/ auto diff 2018 019 [facility], [address] [facility], [address], [place], [address], 9 06:51:47 CMP, serum or plasma 2018 019 [facility], [address] [facility], [address], [place], [address], 9 06:51:47 vitamin D, 25-hydrox y, total, serum 2018 019 [facility], [address] [facility] [address], [address], [place], [address], 9 06:51:49 TSH, ultra-sen sitive, serum 2018 019 [facility], [address] [facility], [address], [place], [address], 9 06:51:49 Referral orthopedi c referral - Patient has appt 07/28/20192019 [email or web address] Not available 0 14:40:23 Procedures None recorded. Surgeries None recorded. Imaging None recorded. Medication Orders acetamino phen 300 mg-codein e 30 mg tablet 2019 020 [facility], [address] [facility], [place], [address], 0 10:35:14 Vitamin D2 1,250 mcg (50,000 unit) capsule 2019 020 [facility], [address] [place], [address], 0 10:33:14 cefdinir 300 mg [facility] [address] [place], [address], 9 10:05:04 fluticaso ne propionat e 50 mcg/actua tion nasal spray,rust pension 2018 019 [facility], [address] [place], [address], 9 12:47:50 Patient TargetsNo targets recorded. Patient Instructions Encounter Date Encounter Id Patient Instructions Last Modified By Organization Details Last Modified Time 08/22/2019 [id number] meniscus tear: care instructions [email or web address] Not available 08/22/2019 11:51:23 09/09/2019 [id number] meniscus tear: care instructions Not available 09/09/2019 10:33:03 12/08/2019 [id number] meniscus tear: care instructions [email or web address] Not available 12/08/2019 10:26:15 Reason for Referral [...] x10e3 /uL 3.4-10 .8 Not Available [facility] ([facility]) [address] [facility], [place], [address], 06/08/2019 06:51:47 06/06/2006/07/2019 CBC w/ auto diff RBC 4.24 x10e6 /uL 3.77-5 .28 Not Available [facility] ([facility]) [address] [place], [address], 06/08/2019 06:51:47 06/06/2006/07/2019 CBC w/ auto diff hemoglobin 13.3 g/dL 11.1-1 5.9 Not Available [facility] ([facility]) [address] [place], [address], 06/08/2019 06:51:47 06/06/2006/07/2019 CBC w/ auto diff hematocrit 39.5 % 34.0-4 6.6 Not Available [facility] ([facility]) [address] [place], [address], 06/08/2019 06:51:47 06/06/2006/07/2019 CBC w/ auto diff MCV 93 fL 79-97 Not Available [facility] ([facility]) [address] [place], [address], 06/08/2019 06:51:47 06/06/2006/07/2019 CBC w/ auto diff MCH 31.4 pg 26.6-3 3.0 Not Available [facility] ([facility]) [address] [place], [address], 06/08/2019 06:51:47 06/06/2006/07/2019 CBC w/ auto diff MCHC 33.7 g/dL 31.5-3 5.7 Not Available [facility] ([facility]) [address] [place], [address], 06/08/2019 06:51:47 06/06/2006/07/2019 CBC w/ auto diff RDW 13.1 % 12.3-1 5.4 Not Available [facility] ([facility]) [address] [place], [address], 06/08/2019 06:51:47 06/06/20 19 06/07/2019 CBC w/ auto diff platelets 289 x10e3 /uL 150-45 0 Not Available [facility] ([facility]) [address] [facility], [place], [address], 06/08/2019 06:51:47 06/06/20 19 06/07/2019 CBC w/ auto diff neutrophils 54 % not estab. Not Available [facility] ([facility]) [address] [facility], [place], [address], 06/08/2019 06:51:47 06/06/20 19 06/07/2019 CBC w/ auto diff lymphs 35 % not estab. Not Available [facility] ([facility]) [address] [place], [address], 06/08/2019 06:51:47 06/06/2006/07/2019 CBC w/ auto diff monocytes 8 % not estab. Not Available [facility] ([facility]) [address] [facility], [place], [address], 06/08/2019 06:51:47 06/06/2006/07/2019 CBC w/ auto diff eos 3 % not estab. Not Available [facility] ([facility]) [address] [facility], [place], [address], 06/08/2019 06:51:47 06/06/2006/07/2019 CBC w/ auto diff basos 0 % not estab. Not Available [facility] ([facility]) [address] [facility], [place], [address], 06/08/2019 06:51:47 06/06/2006/07/2019 CBC w/ auto diff immature cells SHOE REPAIR COBBLER Not Available [facility] ([facility]) [address] [place], [address], 06/08/2019 06:51:47 06/06/2006/07/2019 CBC w/ auto diff neutrophils (absolute) 3.2 x10e3 /uL 1.4-7. 0 Not Available [facility] ([facility]) [address] [place], [address], 06/08/2019 06:51:47 06/06/20 19 06/07/2019 CBC w/ auto diff lymphs (absolute) 2.1 x10e3 /uL 0.7-3. 1 Not Available [facility] ([facility]) [address] [place], [address], 06/08/2019 06:51:47 06/06/2006/07/2019 CBC w/ auto diff monocytes(ab solute) 0.5 x10e3 /uL 0.1-0. 9 Not Available [facility] ([facility]) [address] [place], [address], 06/08/2019 06:51:47 06/06/2006/07/2019 CBC w/ auto diff eos (absolute) 0.2 x10e3 /uL 0.0-0. 4 Not Available [facility] ([facility]) [address] [place], [address], 06/08/2019 06:51:47 06/06/2006/07/2019 CBC w/ auto diff baso (absolute) 0.0 x10e3 /uL 0.0-0. 2 Not Available [facility] ([facility]) [address] [place], [address], 06/08/2019 06:51:47 06/06/2006/07/2019 CBC w/ auto diff immature granulocytes 0 % not estab. Not Available [facility] ([facility]) [address] [place] [address], [address], 06/08/2019 06:51:47 06/06/20 19 06/07/2019 CBC w/ auto diff immature grans (abs) 0.0 x10e3 /uL 0.0-0. 1 Not Available [facility] ([facility]) [address] [place], [address], 06/08/2019 06:51:47 06/06/2006/07/2019 CBC w/ auto diff NRBC SHOE REPAIR COBBLER Not Available [facility] ([facility]) [address] [place], [address], 06/08/2019 06:51:47 06/06/2006/07/2019 CBC w/ auto diff hematology comments: SHOE REPAIR COBBLER Not Available [facility] ([facility]) [address] [place], [address], 06/08/2019 06:51:47 06/06/2006/07/2019 CMP, serum or plasm a glucose 106 mg/dL 65-99 above high normal Not Available [facility] ([facility]) [address] [place], [address], 06/08/2019 06:51:47 06/06/2006/07/2019 CMP, serum or plasm a BUN 24 mg/dL 8-27 Not Available [facility] ([facility]) [address] [place], [address], 06/08/2019 06:51:47 06/06/2006/07/2019 CMP, serum or plasm a creatinine 0.93 mg/dL 0.57-1 .00 Not Available [facility] ([facility]) [address] [place], [address], 06/08/2019 06:51:47 06/06/2006/07/2019 CMP, serum or plasm a eGFR if nonafricn AM 57 mL/mi n/1.7 3 >59 below low normal Not Available [facility] ([facility]) [address] [place], [address], 06/08/2019 06:51:47 06/06/2006/07/2019 CMP, serum or plasm a eGFR if africn AM 65 mL/mi n/1.7 3 >59 Not Available [facility] ([facility]) [address] [facility] [place], [address], 06/08/2019 06:51:47 06/06/2006/07/2019 CMP, serum or plasm a BUN/creatini ne ratio 26 12-28 Not Available [facility] ([facility]) [address] [place], [address], 06/08/2019 06:51:47 06/06/2006/07/2019 CMP, serum or plasm a sodium 142 mmol/ L 134-14 4 Not Available [facility] ([facility]) [address] [facility] [place], [address], 06/08/2019 06:51:47 06/06/2006/07/2019 CMP, serum or plasm a potassium 4.7 mmol/ L 3.5-5. 2 Not Available [facility] ([place] [facility]) [address] [place], [address], 06/08/2019 06:51:47 06/06/2006/07/2019 CMP, serum or plasm a chloride 103 mmol/ L 96-106 Not Available [facility] ([facility]) [address] [place], [address], 06/08/2019 06:51:47 06/06/2006/07/2019 CMP, serum or plasm a carbon dioxide, total 22 mmol/ L 20-29 Not Available [facility] ([facility]) [address] [place], [address], 06/08/2019 06:51:47 06/06/2006/07/2019 CMP, serum or plasm a calcium 9.8 mg/dL 8.7-10 .3 Not Available [facility] ([place] [facility]) [address] [place], [address], 06/08/2019 06:51:47 06/06/2006/07/2019 CMP, serum or plasm a protein, total 6.9 g/dL 6.0-8. 5 Not Available [facility] ([facility]) [address] [place], [address], 06/08/2019 06:51:47 06/06/2006/07/2019 CMP, serum or plasm a albumin 4.4 g/dL 3.5-4. 7 Not Available [facility] ([facility]) [address] [place], [address], 06/08/2019 06:51:47 06/06/2006/07/2019 CMP, serum or plasm a globulin, total 2.5 g/dL 1.5-4. 5 Not Available [facility] ([facility]) [address] [place], [address], 06/08/2019 06:51:47 06/06/2006/07/2019 CMP, serum or plasm a A/G ratio 1.8 1.2-2. 2 Not Available [facility] ([facility]) [address] [place], [address], 06/08/2019 06:51:47 06/06/2006/07/2019 CMP, serum or plasm a bilirubin, total 0.4 mg/dL 0.0-1. 2 Not Available [facility] ([facility]) [address] [place], [address], 06/08/2019 06:51:47 06/06/2006/07/2019 CMP, serum or plasm a alkaline phosphatase 99 IU/L 39-117 Not Available [facility] ([facility]) [address] [place], [address], 06/08/2019 06:51:47 06/06/2006/07/2019 CMP, serum or plasm a AST (SGOT) 15 IU/L 0-40 Not Available [facility] ([facility]) [address] [place], [address], 06/08/2019 06:51:47 06/06/2006/07/2019 CMP, serum or plasm a ALT (SGPT) 8 IU/L 0-32 Not Available [facility] ([facility]) [address] [place], [address], 06/08/2019 06:51:47 06/06/2006/07/2019 lipid panel , serum cholesterol, total 233 mg/dL 100-19 9 above high normal Not Available [facility] ([facility]) [address] [place], [address], 06/08/2019 06:51:48 06/06/2006/07/2019 lipid panel , serum triglyceride s 130 mg/dL 0-149 Not Available [facility] ([facility]) [address] [place], [address], 06/08/2019 06:51:48 06/06/2006/07/2019 lipid panel , serum HDL cholesterol 56 mg/dL >39 Not Available [facility] ([facility]) [address] [place], [address], 06/08/2019 06:51:48 06/06/2006/07/2019 lipid panel , serum VLDL cholesterol mati 26 mg/dL 5-40 Not Available [facility] ([facility]) [address] [place], [address], 06/08/2019 06:51:48 06/06/2006/07/2019 lipid panel , serum LDL cholesterol calc 151 mg/dL 0-99 above high normal Not Available [facility] ([facility]) [address] [place], [address], 06/08/2019 06:51:48 06/06/20 19 06/07/2019 lipid panel , serum comment: SHOE REPAIR COBBLER Not Available [facility] ([facility]) [address] [place] [place], [address], 06/08/2019 06:51:48 06/06/20 19 06/07/2019 vitam in [...] um and D. Elmer leigh [place]: [facility] . 2. Maryellen farnsworth [place], Osmani monk [place], Shanda off-F errar i [place], et al. Evalu ation , treat ment, and preve ntion of vitam in D defic iency : an Endoc rine Socie ty clini mati pract ice guide line. JCEM. 2010; 96(7) :1911 -30. Not Available [facility] ([facility]) [address] [place], [address], 06/08/2019 06:51:48 06/06/2006/07/2019 TSH, ultra -sens itive , serum TSH 0.188 uIU/m L 0.450- 4.500 below low normal Not Available [facility] ([facility]) [address] [place], [address], 06/08/2019 06:51:49 06/06/2006/08/2019 TSH, ultra -sens itive , serum T4,free (direct) 1.48 NG/dL 0.82-1 .77 Not Available [facility] ([facility]) [address] [place], [address], 06/08/2019 06:51:49 09/09/19 20 09/10/2019 CBC w/ auto diff WBC 7.3 x10e3 /uL 3.4-10 .8 Not Available [facility] ([facility]) [address] [place], [address], 09/10/2019 14:10:24 09/09/19 20 09/10/2019 CBC w/ auto diff RBC 4.45 x10e6 /uL 3.77-5 .28 Not Available [facility] ([facility]) [address] [place], [address], 09/10/2019 14:10:24 09/09/19 20 09/10/2019 CBC w/ auto diff hemoglobin 13.7 g/dL 11.1-1 5.9 Not Available [facility] ([facility]) [address] [place], [address], 09/10/2019 14:10:24 09/09/19 20 09/10/2019 CBC w/ auto diff hematocrit 41.4 % 34.0-4 6.6 Not Available [facility] ([facility]) [address] [place], [address], 09/10/2019 14:10:24 09/09/19 20 09/10/2019 CBC w/ auto diff MCV 93 fL 79-97 Not Available [facility] ([facility]) [address] [place], [address], 09/10/2019 14:10:24 09/09/19 20 09/10/2019 CBC w/ auto diff MCH 30.8 pg 26.6-3 3.0 Not Available [facility] ([facility]) [address] [place], [address], 09/10/2019 14:10:24 09/09/19 20 09/10/2019 CBC w/ auto diff MCHC 33.1 g/dL 31.5-3 5.7 Not Available [facility] ([facility]) [address] [facility] [place], [address], 09/10/2019 14:10:24 09/09/19 20 09/10/2019 CBC w/ auto diff RDW 12.4 % 11.7-1 5.4 Not Available [facility] ([facility]) [address] [facility], [place], [address], 09/10/2019 14:10:24 09/09/19 20 09/10/2019 CBC w/ auto diff platelets 324 x10e3 /uL 150-45 0 Not Available [facility] ([facility]) [address] [facility], [place], [address], 09/10/2019 14:10:24 09/09/19 20 09/10/2019 CBC w/ auto diff neutrophils 59 % not estab. Not Available [facility] ([facility]) [address] [facility], [place], [address], 09/10/2019 14:10:24 09/09/19 20 09/10/2019 CBC w/ auto diff lymphs 29 % not estab. Not Available [facility] ([facility]) [address] [facility], [place], [address], 09/10/2019 14:10:24 09/09/19 20 09/10/2019 CBC w/ auto diff monocytes 8 % not estab. Not Available [facility] ([facility]) [address] [facility], [place], [address], 09/10/2019 14:10:24 09/09/19 20 09/10/2019 CBC w/ auto diff eos 3 % not estab. Not Available [facility] ([facility]) [address] [facility], [place], [address], 09/10/2019 14:10:24 09/09/19 20 09/10/2019 CBC w/ auto diff basos 1 % not estab. Not Available [facility] ([facility]) [address] [facility], [place], [address], 09/10/2019 14:10:24 09/09/19 20 09/10/2019 CBC w/ auto diff immature cells SHOE REPAIR COBBLER Not Available [facility] ([facility]) [address] [place], [address], 09/10/2019 14:10:24 09/09/19 20 09/10/2019 CBC w/ auto diff neutrophils (absolute) 4.3 x10e3 /uL 1.4-7. 0 Not Available [facility] ([facility]) [address] [place], [address], 09/10/2019 14:10:24 09/09/19 20 09/10/2019 CBC w/ auto diff lymphs (absolute) 2.1 x10e3 /uL 0.7-3. 1 Not Available [facility] ([facility]) [address] [place], [address], 09/10/2019 14:10:24 09/09/19 20 09/10/2019 CBC w/ auto diff monocytes(ab solute) 0.6 x10e3 /uL 0.1-0. 9 Not Available [facility] ([facility]) [address] [place], [address], 09/10/2019 14:10:24 09/09/19 20 09/10/2019 CBC w/ auto diff eos (absolute) 0.2 x10e3 /uL 0.0-0. 4 Not Available [facility] ([facility]) [address] [place], [address], 09/10/2019 14:10:24 09/09/19 20 09/10/2019 CBC w/ auto diff baso (absolute) 0.0 x10e3 /uL 0.0-0. 2 Not Available [facility] ([facility]) [address] [place], [address], 09/10/2019 14:10:24 09/09/19 20 09/10/2019 CBC w/ auto diff immature granulocytes 0 % not estab. Not Available [facility] ([facility]) [address] [facility], [place], [address], 09/10/2019 14:10:24 09/09/19 20 09/10/2019 CBC w/ auto diff immature grans (abs) 0.0 x10e3 /uL 0.0-0. 1 Not Available [facility] ([facility]) [address] [facility], [place], [address], 09/10/2019 14:10:24 09/09/19 20 09/10/2019 CBC w/ auto diff NRBC SHOE REPAIR COBBLER Not Available [facility] ([facility]) [address] [facility], [place], [address], 09/10/2019 14:10:24 09/09/19 20 09/10/2019 CBC w/ auto diff hematology comments: SHOE REPAIR COBBLER Not Available [facility] ([facility]) [address] [place], [address], 09/10/2019 14:10:24 09/09/19 20 09/10/2019 CMP, serum or plasm a glucose TNP mg/dL Test not perfo rmed. Speci men recei deni uncen trifu ged or impro perly centr ifuge d. Not Available [facility] ([facility]) [address] [place], [address], 09/10/2019 14:10:25 09/09/19 20 09/10/2019 CMP, serum or plasm a BUN 21 mg/dL 8-27 Not Available [facility] ([facility]) [address] [place], [address], 09/10/2019 14:10:25 09/09/19 20 09/10/2019 CMP, serum or plasm a creatinine 0.88 mg/dL 0.57-1 .00 Not Available [facility] ([facility]) [address] [place], [address], 09/10/2019 14:10:25 02/18/20 20 09/10/2019 CMP, serum or plasm a eGFR if nonafricn AM 61 mL/mi n/1.7 3 >59 Not Available [facility] ([facility]) [address] [facility], [place], [address], 09/10/2019 14:10:25 09/09/19 20 09/10/2019 CMP, serum or plasm a eGFR if africn AM 70 mL/mi n/1.7 3 >59 Not Available [facility] ([facility]) [address] [place], [address], 09/10/2019 14:10:25 09/09/19 20 09/10/2019 CMP, serum or plasm a BUN/creatini ne ratio 24 12-28 Not Available [facility] ([facility]) [address] [place], [address], 09/10/2019 14:10:25 09/09/19 20 09/10/2019 CMP, serum or plasm a sodium 140 mmol/ L 134-14 4 Not Available [facility] ([facility]) [address] [place], [address], 09/10/2019 14:10:25 09/09/19 20 09/10/2019 CMP, serum or plasm a potassium TNP mmol/ L Test not perfo rmed. Speci men recei deni uncen trifu ged or impro perly centr ifuge d. Not Available [facility] ([facility]) [address] [place], [address], 09/10/2019 14:10:25 09/09/19 20 09/10/2019 CMP, serum or plasm a chloride 101 mmol/ L 96-106 Not Available [facility] ([facility]) [address] [place], [address], 09/10/2019 14:10:25 09/09/19 20 09/10/2019 CMP, serum or plasm a carbon dioxide, total 23 mmol/ L 20-29 Not Available [facility] ([facility]) [address] [facility] [place], [address], 09/10/2019 14:10:25 09/09/19 20 09/10/2019 CMP, serum or plasm a calcium 9.9 mg/dL 8.7-10 .3 Not Available [facility] ([facility]) [address] [facility] [place], [address], 09/10/2019 14:10:25 09/09/19 20 09/10/2019 CMP, serum or plasm a protein, total 7.2 g/dL 6.0-8. 5 Not Available [facility] ([facility]) [address] [facility] [place], [address], 09/10/2019 14:10:25 09/09/19 20 09/10/2019 CMP, serum or plasm a albumin 4.4 g/dL 3.6-4. 6 Ple ase note refer ence luis f james e Not Available [facility] ([facility]) [address] [facility] [place], [address], 09/10/2019 14:10:25 09/09/19 20 09/10/2019 CMP, serum or plasm a globulin, total 2.8 g/dL 1.5-4. 5 Not Available [facility] ([facility]) [address] [facility] [place], [address], 09/10/2019 14:10:25 09/09/19 20 09/10/2019 CMP, serum or plasm a A/G ratio 1.6 1.2-2. 2 Not Available [facility] ([facility]) [address] [facility] [place], [address], 09/10/2019 14:10:25 09/09/19 20 09/10/2019 CMP, serum or plasm a bilirubin, total 0.3 mg/dL 0.0-1. 2 Not Available [facility] ([facility]) [address] [place], [address], 09/10/2019 14:10:25 09/09/19 20 09/10/2019 CMP, serum or plasm a alkaline phosphatase 93 IU/L 39-117 Not Available [facility]) [address] [facility], [place], [address], 09/10/2019 14:10:25 09/09/19 20 09/10/2019 CMP, serum or plasm a AST (SGOT) 13 IU/L 0-40 Not Available [facility] ([facility]) [address] [facility] [place], [address], 09/10/2019 14:10:25 09/09/19 20 09/10/2019 CMP, serum or plasm a ALT (SGPT) 12 IU/L 0-32 Not Available [facility] ([facility]) [address] [place], [address], 09/10/2019 14:10:25 09/09/19 20 09/10/2019 lipid panel , serum cholesterol, total 221 mg/dL 100-19 9 above high normal Not Available [facility] ([facility]) [address] [place], [address], 09/10/2019 14:10:26 09/09/19 20 09/10/2019 lipid panel , serum triglyceride s 100 mg/dL 0-149 Not Available [facility] ([facility]) [address] [place], [address], 09/10/2019 14:10:26 09/09/19 20 09/10/2019 lipid panel , serum HDL cholesterol 60 mg/dL >39 Not Available [facility] ([facility]) [address] [place], [address], 09/10/2019 14:10:26 09/09/19 20 09/10/2019 lipid panel , serum VLDL cholesterol mati 20 mg/dL 5-40 Not Available [facility] ([facility]) [address] [place], [address], 09/10/2019 14:10:26 09/09/19 20 09/10/2019 lipid panel , serum LDL cholesterol calc 141 mg/dL 0-99 above high normal Not Available [facility] ([facility]) [address] [facility], [place], [address], 09/10/2019 14:10:26 09/09/19 20 09/10/2019 lipid panel , serum comment: SHOE REPAIR COBBLER Not Available [facility] ([facility]) [address] [facility], [place], [address], 09/10/2019 14:10:26 09/09/19 20 09/10/2019 TSH, ultra -sens itive , serum TSH 2.750 uIU/m L 0.450- 4.500 Not Available [facility] ([facility]) [address] [facility], [place], [address], 09/10/2019 14:10:26 08/18/19 20 08/18/2019 US, duple x, venou s, lower extre mity No observ ation record ed. [address], [address], 08/22/2019 13:31:13 08/18/19 20 08/18/2019 XR, knee, 3 view No observ ation record ed. [address] (Imaging) [address] [place] [address], [id number], 08/22/2019 13:31:13 Result Notes None recorded. Problems No Known Problems Medical Equipment None Reported. Allergies Allergen ID Allergen Name Allergen Category Reaction Reaction Severity Criticality Documentation Date Start Date Code Code System Note Provider Name and Address Organization Details Recorded Time 318300 Iodinated contrast media (substanc e) medicatio n other severe Not available 09/04/2018 16380 2003 SNOMED MIRELA [place], [place] - [facility] [...] propionate 50 mcg/actuati on nasal spray,suspe nsion [place] 1 spray every day by intranasa l [...] in Arterial blood by Pulse oximetry Systolic And Diastolic Provider Name and Address Organization Details Last Updated DateTime 0 163.83 cm 27.6 kg/m2 75270.3 6 g 87 /min 94 % 94 % 122/72 mm[Hg] Rox Serrano [facility] 0 11:29:15 Date Recorded Body height Oxygen saturation Oxygen saturation in Arterial blood by Pulse oximetry Body mass index (BMI) Body weight Heart rate Body temperature Respiratory rate Systolic And Diastolic Provider Name and Address Organization Details Last Updated DateTime 0 163.83 cm 99 % 99 % 27.2 kg/m2 14537.0 9 g 79 /min 98 [degF] 16 /min 104/62 mm[Hg] JOS Bolden [facility] 0 10:02:16 Date Recorded Body height Body mass index (BMI) Body weight Heart rate Respiratory rate Body temperature Systolic And Diastolic Provider Name and Address Organization Details Last Updated DateTime 9 163.83 cm 27.5 kg/m2 22380.7 6 g 74 /min 20 /min 97.5 [degF] 147/77 mm[Hg] Jenny Strong [facility] 9 12:09:53 Date Recorded Body height Oxygen saturation Oxygen saturation in Arterial blood by Pulse oximetry Heart rate Respiratory rate Body mass index (BMI) Body weight Body temperature Systolic And Diastolic Provider Name and Address Organization Details Last Updated DateTime 9 163.83 cm 93 % 93 % 100 /min 18 /min 27.4 kg/m2 12650.6 6 g 97.9 [degF] 130/82 mm[Hg] Lashell Karimi RN [facility] 9 10:11:15 Social History Question Answer Notes LastModified by Organizat ion Details LastModified Time Tobacco Smoking Status Never Smoker MIRELA Montoya, [facility] 09/04/2018 10:31:05 What Is Your Level Of [...] used smokeless tobacco? Never used smokeless tobacco [id number] Information not available 03/19/2019 Do you or have you ever used e-cigarettes or vape? Never used electronic cigarettes [id number] Information not available 03/19/2019 Mental Status None [...] SNOMED-CT Code Diagnosis ICD10 Code Diagnosis Note [id number] Kathryn Mcclelland MD [facility] [address] [place] [address] 09/04/2018 10:03:19 09/09/2018 09:46:49 Scoliosis of lumbar spine 549445496 M41.87 better with physical therapy Bilateral arthritis of knees 8642586408 386937 M13.861 M13.862 takes tylenol arthritis Essential hypertension 59257676 I10 Mild inter mittent asthma 901124205 J45.20 Hypothyroidism 11425841 E03.9 Screening mammography 24 691703 Z12.31 Hyperlipid emia screening 841677942 Z13.766 [id number] YADI WHITTAKERP-C [facility] [address] [place] [address] 10/25/2018 13:52:04 10/28/2018 08:03:14 Acute maxillary sinusitis 65896668 J01.00 Respirator y tract congestion 301577933 R09.89 [id number] Kathryn Mcclelland MD [facility] [address] [place] [address] 12/02/2018 09:48:44 12/09/2018 09:59:25 Hypothyroidism 22501286 E03.9 Essential hypertension 75910630 I10 Mild inter mittent asthma 305174239 J45.20 Hyperlipidemia 43440596 E78.2 [id number] Kathryn Mcclelland MD [facility] [address] [place] [address] 03/18/2019 13:31:33 03/19/2019 08:11:07 Vertigo 373484649 R42 tinnitus but no deafness, nausea, or vomiting. [id number] Andrew Maldonado MD [facility] [address] [place] [address] 03/31/2019 11:17:02 04/11/2019 14:28:19 Chronic sinusitis 56993159 J32.9 Dysfunctio n of eustachian tube 52893208 H69.93 [id number] Kathryn Mcclelland MD [facility] [address] [place] [address] 06/06/2019 09:53:20 06/16/2019 14:25:36 Adult health examination 731959173 Z00.00 [id number] Kathryn Mcclelland MD [facility] [address] [facility] [place] [address] 08/22/2019 10:46:33 08/22/2019 15:17:22 Current tear of medial cartilage AND/OR meniscus of knee 404426815 S83.241D Depression screening 171 596059 Z13.31 patient does not appear to be significan tly depressed. [id number] Kathryn Mcclelland MD [facility] [address] [place] [address] 09/09/2019 09:46:17 09/15/2019 10:58:55 Current tear of medial cartilage AND/OR meniscus of knee 371005440 S83.241D Adult heal th examination 104239753 Z00.00 [id number] Kathryn Mcclelland MD [facility] [address] [place] [address] 12/08/2019 09:31:53 12/11/2019 20:37:12 Current tear of medial cartilage AND/OR meniscus of knee 925521892 S83.241D Patient will contact DR. Buckner to [...] Steele Member ID Guarantor Name 01/24/2019 1 [facility] [id number] [facility] [id number] [facility] 12/11/2019 1 [facility] (MEDICARE REPLACEMENT/A DVANTAGE - HMO) [id number] [facility] [id number] [facility] Notes Date Note Type Note Provider [...] with mild off balance Andrew Maldonado MD [address] [place], [address], [facility] 03/31/2019 12:48:14 06/06/2019 text/html Medicare [...] home Kathryn Mcclelland MD Attn: Accounting,[address] [place], [address], [facility] 06/16/2019 14:09:26 08/22/2019 text/html No blood clots s een on venous doppler ultrasound of the right leg. Left leg is pain free. Symptoms present intermittently for about a month. No previous surgery on the right leg. Kathryn Mcclelland MD Attn: [address] [place], [address], [facility] 08/22/2019 13:32:29 09/09/2019 text/html KneeReported bypatient.Location:ri ght; [...] knee Kathryn Mcclelland MD Attn: [address] [place], [address], [facility] 09/14/2019 23:39:17 12/08/2019 text/html KneeReported bypatient.Location:an terior; [...] leg Kathryn Mcclelland MD Attn: Accounting[address] [facility], [place], [address], [facility] 12/11/2019 00:34:09 OBGyn Episode No OBEpisode recorded.
[2025-01-30 09:08] LABS: Free T4 Free Thyroxine 1.81 ng/dL (0.78-2.19)
[2025-01-30 09:21] LABS: Thyroid Stimulating Hormone 2.090 uIU/mL (0.465-4.680)
== END 2025-01-30 07:21 | disposition home or self-care (01) ==
LOC: ANHLAB 07:21
PROVIDERS: PCP Family Medicine; Visit Provider Nurse Practitioner Family
DX: E78.2 Mixed hyperlipidemia (principal); E03.9 Hypothyroidism, unspecified
CPT/HCPCS: 36415; 84439; 84443

== ENCOUNTER 2025-05-08 07:54 | Outpatient (CLI) | payer MEDICARE, SELFPAY ==
[2025-05-08 09:05] LABS: Hematocrit 39.2 % (37.0-47.0); Hemoglobin 12.3 g/dL (12.0-15.0); Mean Corpuscular HGB Conc 31.4 g/dl (32-36); Mean Corpuscular Hemoglobin 30.4 pg (26-34); Mean Corpuscular Volume 96.8 fl (80-100); Platelet Count Result 262 k/mm3 (150-375); Red Blood Count 4.05 M/mm3 (4.2-5.4); White Blood Count 7.2 K/mm3 (4.5-10.0)
[2025-05-08 09:40] LABS: Alanine Aminotransferase 11 U/L (6-35); Albumin Level 3.8 g/dL (3.5-5.1); Alkaline Phosphatase 93 U/L (38-126); Anion Gap 6 mmol/L (4-12); Aspartate Amino Transferase 19 U/L (14-36); Bilirubin,Total 0.5 mg/dL (0.2-1.3); Blood Urea Nitrogen 16 mg/dL (7-17); Calcium 9.0 mg/dL (8.4-10.2); Carbon Dioxide 27 mmol/L (22-30); Chloride 104 mmol/L (98-107); Estimated Glomerular Filt Rate > 60; Glucose 97 mg/dL (65-110); Potassium 4.0 mmol/L (3.4-5.0); Sodium 137 mmol/L (137-145); Total Protein 6.7 g/dL (6.3-8.2)
[2025-05-08 10:07] LABS: Ferritin 154.00 ng/mL (11.1-264)
[2025-05-08 10:16] LABS: Thyroid Stimulating Hormone 0.320 uIU/mL (0.465-4.680)
== END 2025-05-08 07:55 | disposition home or self-care (01) ==
LOC: ANHLAB 07:57
PROVIDERS: PCP Family Medicine; Visit Provider Family Medicine
DX: D64.9 Anemia, unspecified (principal); N18.31 Chronic kidney disease, stage 3a; E03.9 Hypothyroidism, unspecified; E78.2 Mixed hyperlipidemia
CPT/HCPCS: 36415; 80048; 80076; 82728; 84443; 85027